=== PATIENT | female | born 1955 | race Caucasian/White ===

== ENCOUNTER 2019-05-07 05:54 | Emergency (ER) | payer BC, OTHER | END 2019-05-07 07:22 | disposition home or self-care (01) | LOC: ER 05:54 ==

== ENCOUNTER → 2019-07-21 | Outpatient (CLI) | payer MEDICARE, OTHER ==
[~2019-07-21] MED LIST: ATOR80TA76; CYCL10TA9 PO; DIVA-76; DULO30CA49; GLIP10TA13; LAMO100T; LISI2.5T; MELO15TA14 PO; MIRT15TA6; MONT10TA24; TOLT4CAP13
== END ==
LOC: CARD 11:41
PROVIDERS: ATTEND Internal Medicine Cardiovascular Disease
DX: I48.20 Chronic atrial fibrillation, unspecified (principal); I25.119 Atherosclerotic heart disease of native coronary artery with unspecified angina pectoris; I11.9 Hypertensive heart disease without heart failure; E78.5 Hyperlipidemia, unspecified
CPT/HCPCS: 93306

== ENCOUNTER → 2019-07-24 | Outpatient (CLI) | payer MEDICARE, OTHER ==
[~2019-07-24] VITALS: Ht 180 cm; Wt 108.0 kg
[~2019-07-24] MED LIST changes: +ASPI-983 PO; -ATOR80TA76; +ATOR80TA76 PO; +CATHETER FLUSH 10 ML SYR IV PRN; +CLOP75TA28 PO; -DIVA-76; +DIVA-76 PO; +DULO60CA59 PO; +EZET10TA17 PO; -GLIP10TA13; +GLIP10TA13 PO; -LAMO100T; +LAMO100T5; -LISI2.5T; +LISI2.5T PO; +METF-399 PO; -MIRT15TA6; +MIRT15TA6 PO; +MTP25TSR PO; +ONDA4TAB10 PO; +PANT40TA3 PO; +RIVA20TA PO
[2019-07-24 09:57] VITALS: BP 164/87
--- NOTE | 2019-07-24 14:26 | STRESS TEST ---
DATE OF SERVICE: 07/24/2019 EXERCISE MYOVIEW STRESS TEST REFERRING PHYSICIAN: [facility] Baseline heart rate is 84, baseline blood pressure 157/76. Baseline EKG is atrial fibrillation with no ischemic changes. In summary, the patient was injected with 10.3 mCi of technetium-99 Myoview and the resting images were obtained. Then, the patient started exercising with a baseline heart rate, blood pressure and EKG mentioned above. She was able to exercise for 2 minutes 30 seconds on standard Dawson protocol. With peak exercise level, EKG was showing nondiagnostic changes. She was injected with 32.0 mCi of technetium-99 Myoview. Throughout the test, there were minimal EKG changes. During recovery, heart rate returned to baseline, peak blood pressure 179/80, returned to baseline during recovery. The resting and stress images were reviewed and compared in the short axis, horizontal long axis, and vertical long axis views. Review of the images showed breast attenuation with reversible ischemia involving the whole anterior wall, anterior septum and anterolateral wall. SSS is 10, SDS 9, TID value 1.14. On the gated images, the left ventricle appeared to be normal size with normal contractility. Calculated ejection fraction 61%, gated images are unreliable due to underlying atrial fibrillation. CONCLUSION: 1. Poor exercise tolerance, a total of 2 minutes 30 seconds on standard Dawson protocol, total of 3.8 METs achieving 100% of maximum expected heart rate. 2. Appropriate blood pressure response to exercise returned to baseline with hypertensive response to exercise. 3. Baseline atrial fibrillation persisted throughout test. 4. Nondiagnostic EKG changes with exercise returned to baseline during recovery. 5. Breast attenuation with reversible ischemia involving the whole anterior wall, anterior septum and anterolateral wall. 6. Normal left ventricular size with normal contractility. Calculated ejection fraction is 61%, gated images are unreliable due to atrial fibrillation. Job ID: [id number] DocumentID: [id number] Dictated Date: 07/24/2019 12:24:52 Kettle Room Helper Date: 07/24/2019 14:25:40 Dictated By: DENIS ALEX MD
== END ==
LOC: CARD 08:08
PROVIDERS: ATTEND Internal Medicine Cardiovascular Disease
DX: I48.20 Chronic atrial fibrillation, unspecified (principal); I25.119 Atherosclerotic heart disease of native coronary artery with unspecified angina pectoris; I10 Essential (primary) hypertension; E78.5 Hyperlipidemia, unspecified
CPT/HCPCS: 78452; 93017

== ENCOUNTER 2019-09-20 11:00 | Outpatient (RCR) | payer MEDICARE, OTHER ==
[~2019-09-20 11:00] MED LIST changes: -CATHETER FLUSH 10 ML SYR IV PRN; -MONT10TA24; +MONT10TA26; +ONDA-105 PO; -ONDA4TAB10 PO
== END 2019-12-12 | disposition home or self-care (01) ==
LOC: CR 11:00
PROVIDERS: ATTEND Internal Medicine Cardiovascular Disease
DX: Z48.812 Encounter for surgical aftercare following surgery on the circulatory system (principal); Z95.5 Presence of coronary angioplasty implant and graft
CPT/HCPCS: 93798

== ENCOUNTER → 2019-11-10 | Outpatient (CLI) | payer MEDICARE, OTHER ==
[~2019-11-10] MED LIST changes: +MONT10TA24; -MONT10TA26; -ONDA-105 PO; +ONDA4TAB10 PO
--- NOTE | 2019-11-10 15:26 | Diagnostic Imaging Report ---
PROCEDURE: US Non-OB pelvis comp/trans. TECHNIQUE: Multiple realtime grayscale images were obtained of the pelvis in various projections endovaginally. Transabdominal imaging was also performed. INDICATION: Right lower quadrant pain. FINDINGS: The uterus measures 5.8 x 3.2 x 4.5 cm. There is a probable fibroid in posterior body, measuring 1.4 x 1.6 x 0.9 cm. Endometrium is 3 mm in thickness. The ovaries could not be visualized. No adnexal mass or free fluid is seen. IMPRESSION: Probable small uterine fibroid. No other significant abnormality is detected. Dictated by: Dictated on workstation # [id number]
== END ==
LOC: RAD 13:27
PROVIDERS: ATTEND Nurse Practitioner Primary Care
DX: N85.2 Hypertrophy of uterus (principal); R10.31 Right lower quadrant pain
CPT/HCPCS: 76830; 76856

== ENCOUNTER → 2020-06-03 | Outpatient (CLI) | payer MEDICARE, OTHER ==
[~2020-06-03] MED LIST changes: -MONT10TA24; +MONT10TA26; +ONDA-105 PO; -ONDA4TAB10 PO
== END ==
LOC: CARD 12:00
PROVIDERS: ATTEND Internal Medicine Cardiovascular Disease
DX: I25.10 Atherosclerotic heart disease of native coronary artery without angina pectoris (principal); I48.20 Chronic atrial fibrillation, unspecified; E78.2 Mixed hyperlipidemia; I11.9 Hypertensive heart disease without heart failure
CPT/HCPCS: 93306

== ENCOUNTER → 2020-06-04 | Outpatient (CLI) | payer MEDICARE, OTHER ==
--- NOTE | 2020-06-04 15:34 | Diagnostic Imaging Report ---
PROCEDURE: MRI right joint lower extremity without contrast. TECHNIQUE: Multiplanar, multisequence non contrast-enhanced MRI of the right lower extremity was accomplished. INDICATION: Knee pain with no known injury. FINDINGS: The anterior cruciate and posterior cruciate ligaments are intact. Both the superficial and deep components of the medial collateral ligament are intact. The biceps femoris, fibular collateral, and iliotibial band are intact. There are some degenerative changes of the patellofemoral joint. There is loss of articular cartilage in both the medial and lateral knee joint compartments. There is minimal underlying marrow edema. There is a degenerative cyst in the central tibia. There is degenerative maceration of the lateral meniscus. Medial meniscus has some myxoid degeneration posteriorly. Quadriceps tendon and patellar tendons are intact. There appear to be some intra-articular loose bodies. IMPRESSION: Three-compartment osteoarthritic change particularly in the lateral knee joint compartment and patellofemoral joint. Additionally, there are some intra-articular loose bodies and a small knee joint effusion. Degenerative maceration of the lateral meniscus and myxoid degeneration of the posterior horn of the medial meniscus. Dictated by: Dictated on workstation # [id number]
== END ==
LOC: RAD 14:45
PROVIDERS: ATTEND Nurse Practitioner Community Health
DX: M17.11 Unilateral primary osteoarthritis, right knee (principal); M25.461 Effusion, right knee; G89.29 Other chronic pain
CPT/HCPCS: 73721

== ENCOUNTER → 2020-07-24 | Outpatient (CLI) | payer MEDICARE, OTHER ==
[~2020-07-24] VITALS: Ht 180 cm; Wt 111.0 kg
[~2020-07-24] MED LIST changes: +ASPI-1238 PO; -ASPI-983 PO; -PANT40TA3 PO; +PANT40TA52 PO; +REGADENOSON 0.4 MG/5 ML SYR (LEXISCAN) IV ONE
[2020-07-24] MEDS: CATHETER FLUSH 10 ML SYR IV PRN ×2 (11:45→13:54)
[2020-07-24 13:53] VITALS: BP 147/73
--- NOTE | 2020-07-24 15:47 | Cardiology Stress Test Report ---
Stress Test Report Date of Procedure/Referring: Date of Procedure: Jul 24, 2020 PCP Denis Peres MD Admitting Physician Center/[facility] Indications: Atrial fibrillation, coronary artery disease Baseline Heart Rate: 67 Baseline Blood Pressure: Blood Pressure Systolic: 147 Blood Pressure Diastolic: 73 Baseline Vitals Vital Signs Date Time Temp Pulse Resp B/P (MAP) Pulse Ox O2 Delivery O2 Flow Rate FiO2 07/24/20 13:53 73 16 147/73 (97) 98 Room Air Baseline EKG: Baseline EKG: atrial fibrillation Summary After explaining the procedure to the patient, she signed a consent and then b rought to the stress nuclear laboratory. Patient received 0.4 mg Lexiscan for stress test, ECG, heart rate and blood pressure were monitored continuously. Resting and stress dose of radio tracer were injected, imaging was acquired and reviewed in short axis, horizontal long axis and vertical long axis views. TID: 1.4 SSS: 11 SDS: 2 EF: 69 1. Patient tolerated Lexiscan well 2. Breast attenuation with fixed defect involving the whole anterior wall and mid to apical anterolateral wall with no significant reversibility 3. Normal left ventricular size, normal contractility, EF 69 percent DENIS PERES MD Jul 24, 2020 15:47
== END ==
LOC: CARD 12:00
PROVIDERS: ATTEND Internal Medicine Cardiovascular Disease
DX: I10 Essential (primary) hypertension (principal); I25.10 Atherosclerotic heart disease of native coronary artery without angina pectoris; I48.20 Chronic atrial fibrillation, unspecified; E78.2 Mixed hyperlipidemia
CPT/HCPCS: 78452; 93017; A9502

== ENCOUNTER 2020-12-19 14:59 | Emergency (ER) | payer MEDICARE, OTHER ==
[~2020-12-19] VITALS: Ht 172 cm; Wt 136.0 kg
[~2020-12-19 14:59] MED LIST changes: -MONT10TA26; +MONT10TA32; -REGADENOSON 0.4 MG/5 ML SYR (LEXISCAN) IV ONE
--- NOTE | 2020-12-19 15:07 | ED Chest Pain ---
General Chief Complaint: Chest Wall Stated Complaint: CHEST PAIN Source: patient Exam Limitations: no limitations History of Present Illness Date Seen by Provider: Dec 19, 2020 Time Seen by Provider: 15:07 Initial Comments 65-year-old female presents with some chest tightness, shortness of breath. Patient reports that started out on the right side behind her lower ribs. That she is now having some chest tightness in the left side. She has got some shortness of breath. She reports a history of "asthma" but does not take any inhalers. Patient reports she has a history of bronchitis and gets at least yearly around this time a year. 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 She is currently on Xarelto Plavix Toprol. She has a previous history of atrial fib. Patient received her Covid vaccination on 12/10/2020. Allergies and Home Medications Allergies Coded Allergies: amoxicillin (Verified Adverse Reaction, Mild, 05/07/19) YEAST INFECTION Uncoded Allergies: ANESTHESIA (Adverse Reaction, Unknown, Nausea, 05/07/19) Home Medications Aspirin 81 Mg Tablet.dr, 81 MG PO DAILY Prescribed by: DENIS ALEX on 08/03/19656 Atorvastatin Calcium 80 Mg Tablet, 80 MG PO 1500, (Reported) LAST FILLED #90 03-02-19 Clopidogrel Bisulfate 75 Mg Tablet, 75 MG PO DAILY Prescribed by: DENIS ALEX on 08/03/19656 Divalproex Sodium 500 Mg Tablet.dr, 500 MG PO HS, (Reported) Duloxetine HCl 60 Mg Capsule.dr, 60 MG PO DAILY, (Reported) Ezetimibe 10 Mg Tablet, 10 MG PO DAILY Prescribed by: DENIS ALEX on 08/03/19701 Glipizide 10 Mg Tablet, 20 MG PO BID, (Reported) TAKES 2 (10MG) TABLETS Lisinopril 2.5 Mg Tablet, 2.5 MG PO 1500, (Reported) LAST FILLED #90 01-19-19 Metformin HCl 1,000 Mg Tablet, 1,000 MG PO BID Hold Metformin for 48 Hours Prescribed by: DENIS ALEX on 08/03/19656 Metoprolol Succinate 25 Mg Tab.er.24h, 25 MG PO DAILY, (Reported) Mirtazapine 15 Mg Tablet, 15 MG PO HS, (Reported) Ondansetron HCl 4 Mg Tablet, 4 MG PO TID PRN for NAUSEA/VOMITING-1ST LINE, (Reported) Pantoprazole Sodium 40 Mg Tablet.dr, 40 MG PO DAILY Prescribed by: DENIS ALEX on 08/03/19 0657 Rivaroxaban 20 Mg Tablet, 20 MG PO HS, (Reported) Patient Home Medication List Home Medication List Reviewed: Yes Review of Systems Review of Systems Constitutional: No chills, No fever, No weakness Respiratory: Shortness of Air; Denies Wheezing Cardiovascular: Chest Pain (Described as tightness); Denies Irregular Heart Rate, Denies Lightheadedness, Denies Palpitations Gastrointestinal: No Symptoms Reported Genitourinary: No Symptoms Reported Musculoskeletal: no symptoms reported Skin: no symptoms reported Psychiatric/Neurological: No Symptoms Reported Endocrine: No Symptoms Reported Hematologic/Lymphatic: No Symptoms Reported Past [id number] Hx Past Med/Social Hx: Reviewed Nursing Past Med/Soc Hx Patient Social History Alcohol Beverage of Choice: Beer Drug of Choice: THC Type Used: Cigarettes Former Smoker, Quit: Mar 22, 2017 Recent Hopitalizations: No Immunizations Up To Date Date of Pneumonia Vaccine: Aug 01, 2017 Seasonal Allergies Seasonal Allergies: No Past Medical History Surgeries: Yes Abdominal, Section, Gallbladder, Joint Replacement, Orthopedic Respiratory: Yes Asthma Cardiac: Yes Atrial Fibrillation, Coronary Artery Disease, Heart Attack, High Cholesterol, Hypertension, Irregular Heartbeat 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 Genitourinary: Yes (BLADDER CONTROL ISSUES) Gastrointestinal: Yes (SPLENECTOMY FOR UNKNOWN REASON) Musculoskeletal: Yes (LEFT KNEE REPLACEMENT) Chronic Back Pain Endocrine: Yes Diabetes, Non-Insulin dep HEENT: No (GLASSES) Cancer: No Psychosocial: Yes (EXTENSIVE PSYCH ISSUES) Anxiety, Bipolar, Depression Integumentary: No Blood Disorders: No Family Medical History Heart Disease, Lung Disease Physical Exam Vital Signs Vital Signs - First Documented 12/19/20 15:13 Temp 37.1 Pulse 77 Resp 20 B/P (MAP) 151/69 (96) Pulse Ox 100 O2 Delivery Room Air Capillary Refill : Height, Weight, BMI Height: 5'11.00" Weight: 235lbs. oz. 106.934950nz; 34.25 BMI Method:Stated General Appearance: Anxious, Obese HEENT: PERRL/EOMI Neck: Non Tender, Supple Respiratory: No Respiratory Distress, Decreased Breath Sounds; No Rhonci, No Stridor, No Wheezing Cardiovascular: Regular Rate, Rhythm Gastrointestinal: Non Tender, Soft Extremity: Normal Capillary Refill, Normal Inspection, Normal Range of Motion Neurologic/Psychiatric: Alert, Oriented x3, No Motor/Sensory Deficits, Normal Mood/Affect, remote mortgage underwriter II-XII Norm as Tested Skin: Normal Color, Warm/Dry Progress/Results/Core Measures Results/Orders Lab Results Laboratory Tests Test 12/19/20 15:20 Range/Units White Blood Count 10.9 4.3-11.0 10^3/uL Red Blood Count 4.20 3.80-5.11 10^6/uL Hemoglobin 12.0 11.5-16.0 g/dL Hematocrit 37 35-52 % Mean Corpuscular Volume 88 80-99 fL Mean Corpuscular Hemoglobin 29 25-34 pg Mean Corpuscular Hemoglobin Concent 33 32-36 g/dL Red Cell Distribution Width 16.3 H 10.0-14.5 % Platelet Count 287 130-400 10^3/uL Mean Platelet Volume 11.7 9.0-12.2 fL Immature Granulocyte % (Auto) 0 % Neutrophils (%) (Auto) 55 42-75 % Lymphocytes (%) (Auto) 34 12-44 % Monocytes (%) (Auto) 6 0-12 % Eosinophils (%) (Auto) 4 0-10 % Basophils (%) (Auto) 1 0-10 % Neutrophils # (Auto) 6.1 1.8-7.8 10^3/uL Lymphocytes # (Auto) 3.7 1.0-4.0 10^3/uL Monocytes # (Auto) 0.6 0.0-1.0 10^3/uL Eosinophils # (Auto) 0.4 H 0.0-0.3 10^3/uL Basophils # (Auto) 0.1 0.0-0.1 10^3/uL Immature Granulocyte # (Auto) 0.0 0.0-0.1 10^3/uL Prothrombin Time 17.8 H 12.2-14.7 SEC INR Comment 1.4 0.8-1.4 Activated Partial Thromboplast Time 27 24-35 SEC Sodium Level 136 135-145 MMOL/L Potassium Level 4.9 3.6-5.0 MMOL/L Chloride Level 103 98-107 MMOL/L Carbon Dioxide Level 20 L 21-32 MMOL/L Anion Gap 13 5-14 MMOL/L Blood Urea Nitrogen 21 H 7-18 MG/DL Creatinine 1.54 H 0.60-1.30 MG/DL Estimat Glomerular Filtration Rate 34 BUN/Creatinine Ratio 14 Glucose Level 259 H 70-105 MG/DL Calcium Level 9.5 8.5-10.1 MG/DL Corrected Calcium 9.7 8.5-10.1 MG/DL Magnesium Level 1.7 1.6-2.4 MG/DL Total Bilirubin 0.8 0.1-1.0 MG/DL Aspartate Amino Transf (AST/SGOT) 18 5-34 U/L Alanine Aminotransferase (ALT/SGPT) 14 0-55 U/L Alkaline Phosphatase 137 H 40-136 U/L Myoglobin 62.7 10.0-92.0 NG/ML Troponin I < 0.028 <0.028 NG/ML B-Type Natriuretic Peptide 137.7 H <100.0 PG/ML Total Protein 7.1 6.4-8.2 GM/DL Albumin 3.7 3.2-4.5 GM/DL Lipase 28 8-78 U/L My Orders Orders - PORRAS,CINTHIA L DO Cbc With Automated Diff (12/19/20 15:07) Magnesium (12/19/20 15:07) Chest 1 View, Ap/Pa Only (12/19/20 15:07) Ekg Tracing (12/19/20 15:07) Comprehensive Metabolic Panel (12/19/20 15:07) Myoglobin Serum (12/19/20 15:07) Protime With Inr (12/19/20 15:07) Partial Thromboplastin Time (12/19/20 15:07) O2 (12/19/20 15:07) Monitor-Rhythm Ecg Trace Only (12/19/20 15:07) Lipid Panel (12/20/20 06:00) Ed Iv/Invasive Line Start (12/19/20 15:07) Lipase (12/19/20 15:07) BNP (12/19/20 15:07) Troponin I (12/19/20 15:07) Aspirin Chewable Tablet (Baby Aspirin Ch (12/19/20 15:15) Levalbuterol (Non-Formulary) (Xopenex (N (12/19/20 15:15) Medications Given in ED Current Medications Medications Dose Ordered Sig/Kaylee Route Start Time Stop Time Status Last Admin Dose Admin Aspirin 324 mg ONCE ONCE PO 12/19/20 15:15 12/19/20 15:16 DC 12/19/20 15:40 324 MG Vital Signs/I&O 12/19/20 15:13 Temp 37.1 Pulse 77 Resp 20 B/P (MAP) 151/69 (96) Pulse Ox 100 O2 Delivery Room Air Progress Progress Note : Time: 16:17 Progress Note Patient feels significantly better following the Xopenex treatment. Because patient reports that she has difficulty sleeping and does not like albuterol I will give her some Xopenex nebulizers. She also has some mild pulmonary edema on x-ray and so I will start her on some Lasix. She is currently taking spironolactone. We will give her 3 days of Lasix and recommend she follow-up with her primary care provider Wednesday or Wednesday of next week for recheck of today's symptoms and ensure that she is improving. She should return to the ER as Initial ECG Impression Date: Dec 19, 2020 Initial ECG Impression Time: 15:04 Initial ECG Rate: 75 Initial ECG Rhythm: Normal Sinus Initial ECG Intervals: AK (247) Initial ECG Impression: Nonspecific Changes Comment No acute changes Diagnostic Imaging Diagonstic Imaging: Xray Plain Films/CT/US/NM/MRI: elbow Comments [facility], [place] NAME: MARC ISAAC [facility] REC#: [id number] PT STATUS: REG ER : 1955 PHYSICIAN: CINTHIA PORRAS DO ADMIT DATE: 12/19/20/ER Draft Date of Exam:12/19/20 CHEST 1 VIEW, AP/PA ONLY INDICATION: Chest pain. AP view of the chest is obtained with comparison made to study of 08/01/2019. There is mild cardiomegaly. There is mild pulmonary venous congestion. No pneumothorax is identified. There is no consolidation or definite pleural fluid. Surgical findings are seen in the left upper quadrant of the abdomen. IMPRESSION: Cardiomegaly and pulmonary venous congestion may reflect congestive heart failure without overt pulmonary edema. Dictated on workstation # [id number] Departure Impression Primary Impression: Chronic bronchitis Qualified Codes: J42 - Unspecified chronic bronchitis Additional Impression: Pulmonary edema Qualified Codes: J81.1 - Chronic pulmonary edema Disposition: HOME, SELF-CARE Condition: Stable Departure-Patient Inst. Referrals: [facility] (PCP/Family) Primary Care Physician Patient Instructions: Shortness of Breath (Dyspnea), Chronic Bronchitis, Heart Failure, Adult (DC), How to Use a Nebulizer, Adult Add. Discharge Instructions: Follow-up with your primary care provider on Wednesday of next week if possible Return to the ER as needed All discharge instructions reviewed with patient and/or family. Voiced understanding. Scripts Levalbuterol HCl (Xopenex) 1.25 Mg/3 Ml Vial.neb 1.25 MG INH Q8H PRN for WHEEZING, #10 EACH 0 Refills Prov: CINTHIA PORRAS DO 12/19/20 Furosemide (Furosemide) 20 Mg Tablet 20 MG PO DAILY, #5 TAB Prov: CINTHIA PORRAS DO 12/19/20 CINTHIA PORRAS DO Dec 19, 2020 15:07
[2020-12-19] MEDS ORDERED: RT-LEVALBUTEROL (XOPENEX) 1.25 MG/3 ML NEB NON-FORMULARY INH SCH (15:15)
[2020-12-19] MEDS ORDERED: ASPIRIN 81 MG CHEW (CHILDREN'S ASA) PO ONE (15:15)
[2020-12-19 15:30] LABS: BASOPHILS # (AUTO) 0.1 10^3/uL (0.0-0.1); BASOPHILS % (AUTO) 1 % (0-10); EOSINOPHILS # (AUTO) 0.4 10^3/uL (0.0-0.3); EOSINOPHILS % (AUTO) 4 % (0-10); HEMATOCRIT 37 % (35-52); LYMPHOCYTES # (AUTO) 3.7 10^3/uL (1.0-4.0); LYMPHOCYTES % (AUTO) 34 % (12-44); MEAN CORPUSCULAR HEMOGLOBIN 29 pg (25-34); MEAN CORPUSCULAR HGB CONC 33 g/dL (32-36); MEAN CORPUSCULAR VOLUME 88 fL (80-99); MEAN PLATELET VOLUME 11.7 fL (9.0-12.2); MONOCYTES # (AUTO) 0.6 10^3/uL (0.0-1.0); MONOCYTES % (AUTO) 6 % (0-12); NEUTROPHILS # (AUTO) 6.1 10^3/uL (1.8-7.8); NEUTROPHILS % (AUTO) 55 % (42-75); PLATELET COUNT 287 10^3/uL (130-400); WHITE BLOOD COUNT 10.9 10^3/uL (4.3-11.0)
[2020-12-19 15:45] LABS: INR 1.4 (0.8-1.4); PROTHROMBIN TIME PATIENT 17.8 SEC (12.2-14.7)
[2020-12-19 15:50] LABS: ALBUMIN 3.7 GM/DL (3.2-4.5); BILIRUBIN,TOTAL 0.8 MG/DL (0.1-1.0); CALCIUM 9.5 MG/DL (8.5-10.1); CREATININE SERUM 1.54 MG/DL (0.60-1.30); MAGNESIUM 1.7 MG/DL (1.6-2.4); POTASSIUM 4.9 MMOL/L (3.6-5.0); TOTAL PROTEIN 7.1 GM/DL (6.4-8.2)
--- NOTE | 2020-12-19 16:02 | Diagnostic Imaging Report ---
INDICATION: Chest pain. AP view of the chest is obtained with comparison made to study of 08/01/2019. There is mild cardiomegaly. There is mild pulmonary venous congestion. No pneumothorax is identified. There is no consolidation or definite pleural fluid. Surgical findings are seen in the left upper quadrant of the abdomen. IMPRESSION: Cardiomegaly and pulmonary venous congestion may reflect congestive heart failure without overt pulmonary edema. Dictated by: Dictated on workstation # [id number]
[2020-12-19] MEDS ORDERED: FURO20TA4 PO (16:21)
[2020-12-19] MEDS ORDERED: LEVA1.2527 INH (16:21)
[2020-12-19 16:39] VITALS: BP 136/86
== END 2020-12-19 16:46 | disposition home or self-care (01) ==
LOC: EDUNIT# 14:59 → ER 15:01
DX: J42 Unspecified chronic bronchitis (principal); J81.1 Chronic pulmonary edema; I10 Essential (primary) hypertension; E66.9 Obesity, unspecified; F31.9 Bipolar disorder, unspecified; I25.2 Old myocardial infarction; E78.00 Pure hypercholesterolemia, unspecified; E11.9 Type 2 diabetes mellitus without complications; I48.91 Unspecified atrial fibrillation; F41.9 Anxiety disorder, unspecified; Z68.34 Body mass index [BMI] 34.0-34.9, adult; Z87.891 Personal history of nicotine dependence; Z88.1 Allergy status to other antibiotic agents; Z79.01 Long term (current) use of anticoagulants; Z79.82 Long term (current) use of aspirin; Z79.84 Long term (current) use of oral hypoglycemic drugs
CPT/HCPCS: 36415; 71045; 80053; 83690; 83735; 83874; 83880; 84484; 85025; 85610; 85730; 93005; 93041

== ENCOUNTER 2021-11-24 11:37 | Observation (INO) | payer MEDICARE, OTHER ==
[~2021-11-24] VITALS: Ht 177.8 cm; Wt 98.1 kg
[~2021-11-24 11:37] MED LIST changes: +CYCL10TA25 PO; -CYCL10TA9 PO; +FURO20TA4 PO; +LEVA1.2527 INH; -LISI2.5T PO; +LISI2.5T13 PO; +MIRT-68 PO; -MIRT15TA6 PO; +MONT-40; -MONT10TA32; -TOLT4CAP13; +TOLT4CAP26
[2021-11-24 11:53] LABS: BASOPHILS # (AUTO) 0.1 10^3/uL (0.0-0.1); BASOPHILS % (AUTO) 1 % (0-10); EOSINOPHILS # (AUTO) 0.5 10^3/uL (0.0-0.3); EOSINOPHILS % (AUTO) 6 % (0-10); HEMATOCRIT 40 % (35-52); HEMOGLOBIN 12.8 g/dL (11.5-16.0); LYMPHOCYTES # (AUTO) 3.3 10^3/uL (1.0-4.0); LYMPHOCYTES % (AUTO) 39 % (12-44); MEAN CORPUSCULAR HEMOGLOBIN 27 pg (25-34); MEAN CORPUSCULAR HGB CONC 32 g/dL (32-36); MEAN CORPUSCULAR VOLUME 84 fL (80-99); MEAN PLATELET VOLUME 12.3 fL (9.0-12.2); MONOCYTES # (AUTO) 0.7 10^3/uL (0.0-1.0); MONOCYTES % (AUTO) 8 % (0-12); NEUTROPHILS # (AUTO) 3.9 10^3/uL (1.8-7.8); NEUTROPHILS % (AUTO) 46 % (42-75); PLATELET COUNT 435 10^3/uL (130-400); WHITE BLOOD COUNT 8.6 10^3/uL (4.3-11.0)
--- NOTE | 2021-11-24 11:54 | ED Chest Pain ---
General Chief Complaint: Chest Pain Stated Complaint: CP Source: patient Exam Limitations: no limitations History of Present Illness Date Seen by Provider: Nov 24, 2021 Time Seen by Provider: 11:49 Initial Comments Patient is a 65-year-old female who was brought to the ED by EMS for chest pain. She has a history of type 2 diabetes, hypertension, coronary artery disease, asthma, peptic ulcer disease. Patient was at the [facility] seen her primary care physician when she started having left-sided chest pain. Was given a full aspirin. Chest pain has resolved. She reports similar type pain back in April and had a heart attack. Patient was found to be in A. fib which from previous EKG she was in normal sinus rhythm. Rate controlled. She states she has been having nausea over the past 2 to 3 months. She believes this is s econdary to her diabetes medication. She states she has not been able to to eat because she is nauseous. No vomiting or diarrhea. She states the last time she felt nausea she had a ulcer that resulted in dark tarry stool and blood transfusion. She has no current abdominal pain. No urinary symptoms, headache, dizziness, visual changes, headache. No radiating pain Allergies and Home Medications Allergies Coded Allergies: amoxicillin (Verified Adverse Reaction, Mild, 05/07/19) YEAST INFECTION Uncoded Allergies: ANESTHESIA (Adverse Reaction, Unknown, Nausea, 05/07/19) Patient Home Medication List Home Medication List Reviewed: Yes Aspirin (Aspirin EC) 81 Mg Tablet., 81 MG PO DAILY Prescribed by: DENIS PERES on 08/03/19 06 Atorvastatin Calcium (Atorvastatin Calcium) 80 Mg Tablet, 80 MG PO 1500, (Reported) Entered as Reported by: ANA MARIA ROOT on 05/07/19 06 Clopidogrel Bisulfate (Clopidogrel) 75 Mg Tablet, 75 MG PO DAILY Prescribed by: DENIS PERES on 08/03/19656 Divalproex Sodium (Divalproex Sodium) 500 Mg Tablet.dr, 500 MG PO HS, (Reported) Entered as Reported by: ANA MARIA ROOT on 05/07/19614 Duloxetine HCl (Duloxetine HCl) 60 Mg Capsule.dr, 60 MG PO DAILY, (Reported) Entered as Reported by: HAVEN DAWN on 08/02/19 1112 Ezetimibe (Zetia) 10 Mg Tablet, 10 MG PO DAILY Prescribed by: DENIS PERES on 08/03/19 07 Furosemide (Furosemide) 20 Mg Tablet, 20 MG PO DAILY Prescribed by: CINTHIA PORRAS on 12/19/20 162 Glipizide (Glipizide) 10 Mg Tablet, 20 MG PO BID, (Reported) Entered as Reported by: ANA MARIA ROOT on 05/07/19614 Levalbuterol HCl (Xopenex) 1.25 Mg/3 Ml Vial.neb, 1.25 MG INH Q8H PRN for WHEEZING Prescribed by: CINTHIA PORRAS on 12/19/20 162 Lisinopril (Lisinopril) 2.5 Mg Tablet, 2.5 MG PO 1500, (Reported) Entered as Reported by: ANA MARIA ROOT on 05/07/19614 Metformin HCl (Metformin HCl) 1,000 Mg Tablet, 1,000 MG PO BID Prescribed by: DENIS PERES on 08/03/19656 Metoprolol Succinate (Metoprolol Succinate) 25 Mg Tab.er.24h, 25 MG PO DAILY, (Reported) Entered as Reported by: HAVEN DAWN on 08/02/191111 Mirtazapine (Mirtazapine) 15 Mg Tablet, 15 MG PO HS, (Reported) Entered as Reported by: ANA MARIA ROOT on 05/07/19614 Ondansetron HCl (Ondansetron HCl) 4 Mg Tablet, 4 MG PO TID PRN for NAUSEA/VOMITING-1ST LINE, (Reported) Entered as Reported by: HAVEN DAWN on 08/02/191111 Pantoprazole Sodium (Pantoprazole Sodium) 40 Mg Tablet.dr, 40 MG PO DAILY Prescribed by: DENIS PERES on 08/03/1957 Rivaroxaban (Xarelto) 20 Mg Tablet, 20 MG PO HS, (Reported) Entered as Reported by: HAVEN DAWN on 08/02/191111 Review of Systems Review of Systems Constitutional: No chills, No diaphoresis, No dizziness, No fever, No malaise EENTM: No Double Vision, No Ear Drainage, No Ear Pain, No Throat Swelling Respiratory: Denies Cough, Denies Orthopnea Cardiovascular: Chest Pain; Denies Edema Gastrointestinal: Denies Abdominal Pain, Denies Diarrhea; Nausea Genitourinary: Denies Discharge Musculoskeletal: No back pain, No joint pain Skin: No change in color, No change in hair/nails Psychiatric/Neurological: Denies Anxiety, Denies Depressed All Other Systems Reviewed Negative Unless Noted: Yes Past [id number] Hx Seasonal Allergies Seasonal Allergies: No Past Medical History Surgeries: Yes Abdominal, Section, Gallbladder, Joint Replacement, Orthopedic Respiratory: Yes Asthma Cardiac: Yes Atrial Fibrillation, Coronary Artery Disease, Heart Attack, High Cholesterol, Hypertension, Irregular Heartbeat Neurological: No [employer]OX [employer]ER History: Menopausal Genitourinary: Yes (BLADDER CONTROL ISSUES) Gastrointestinal: Yes (SPLENECTOMY FOR UNKNOWN REASON) Musculoskeletal: Yes (LEFT KNEE REPLACEMENT) Chronic Back Pain Endocrine: Yes Diabetes, Non-Insulin dep HEENT: No (GLASSES) Cancer: No Psychosocial: Yes (EXTENSIVE PSYCH ISSUES) Anxiety, Bipolar, Depression Integumentary: No Blood Disorders: No Family Medical History Heart Disease, Lung Disease Physical Exam Vital Signs Vital Signs - First Documented 11/24/21 11:37 Temp 35.6 Pulse 88 Resp 20 B/P (MAP) 104/72 (83) Pulse Ox 100 O2 Delivery Room Air Capillary Refill : Height, Weight, BMI Height: 5'11.00" Weight: 235lbs. oz. 106.945427vr; 45.00 BMI Method:Stated General Appearance: No Apparent Distress, WD/WN HEENT: PERRL/EOMI, TMs Normal, Normal ENT Inspection, Pharynx Normal Neck: Full Range of Motion, Normal Inspection, Non Tender, Supple Respiratory: Chest Non Tender, Lungs Clear, Normal Breath Sounds, No Accessory Muscle Use, No Respiratory Distress Cardiovascular: No Edema, No Gallop, No JVD, No Murmur, Irregularly Irregular Gastrointestinal: Normal Bowel Sounds, No Organomegaly, No Pulsatile Mass, Non Tender, Soft Extremity: Normal Capillary Refill, Normal Inspection, Normal Range of Motion, Non Tender Neurologic/Psychiatric: Alert, Oriented x3, No Motor/Sensory Deficits, Normal Mood/Affect, 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 Norm as Tested Skin: Normal Color, Warm/Dry Progress/Results/Core Measures Results/Orders Lab Results Laboratory Tests Test 11/24/21 11:37 11/24/21 13:50 Range/Units White Blood Count 8.6 4.3-11.0 10^3/uL Red Blood Count 4.75 3.80-5.11 10^6/uL Hemoglobin 12.8 11.5-16.0 g/dL Hematocrit 40 35-52 % Mean Corpuscular Volume 84 80-99 fL Mean Corpuscular Hemoglobin 27 25-34 pg Mean Corpuscular Hemoglobin Concent 32 32-36 g/dL Red Cell Distribution Width 18.4 H 10.0-14.5 % Platelet Count 435 H 130-400 10^3/uL Mean Platelet Volume 12.3 H 9.0-12.2 fL Immature Granulocyte % (Auto) 0 % Neutrophils (%) (Auto) 46 42-75 % Lymphocytes (%) (Auto) 39 12-44 % Monocytes (%) (Auto) 8 0-12 % Eosinophils (%) (Auto) 6 0-10 % Basophils (%) (Auto) 1 0-10 % Neutrophils # (Auto) 3.9 1.8-7.8 10^3/uL Lymphocytes # (Auto) 3.3 1.0-4.0 10^3/uL Monocytes # (Auto) 0.7 0.0-1.0 10^3/uL Eosinophils # (Auto) 0.5 H 0.0-0.3 10^3/uL Basophils # (Auto) 0.1 0.0-0.1 10^3/uL Immature Granulocyte # (Auto) 0.0 0.0-0.1 10^3/uL Prothrombin Time 21.3 H 12.2-14.7 SEC INR Comment 1.8 H 0.8-1.4 Activated Partial Thromboplast Time 33 24-35 SEC Sodium Level 136 135-145 MMOL/L Potassium Level 4.3 3.6-5.0 MMOL/L Chloride Level 105 98-107 MMOL/L Carbon Dioxide Level 20 L 21-32 MMOL/L Anion Gap 11 5-14 MMOL/L Blood Urea Nitrogen 22 H 7-18 MG/DL Creatinine 1.67 H 0.60-1.30 MG/DL Estimat Glomerular Filtration Rate 34 BUN/Creatinine Ratio 13 Glucose Level 220 H 70-105 MG/DL Calcium Level 9.6 8.5-10.1 MG/DL Corrected Calcium 9.8 8.5-10.1 MG/DL Magnesium Level 2.0 1.6-2.4 MG/DL Total Bilirubin 0.5 0.1-1.0 MG/DL Aspartate Amino Transf (AST/SGOT) 11 5-34 U/L Alanine Aminotransferase (ALT/SGPT) 9 0-55 U/L Alkaline Phosphatase 137 H 40-136 U/L Creatine Kinase MB 0.8 <6.6 NG/ML Myoglobin 56.1 10.0-92.0 NG/ML Troponin I < 0.028 < 0.028 <0.028 NG/ML B-Type Natriuretic Peptide 65.4 <100.0 PG/ML Total Protein 7.2 6.4-8.2 GM/DL Albumin 3.8 3.2-4.5 GM/DL My Orders Orders - TERRY NANCE PA Cbc With Automated Diff (11/24/21 11:47) Magnesium (11/24/21 11:47) Chest 1 View, Ap/Pa Only (11/24/21 11:47) Ekg Tracing (11/24/21 11:47) Comprehensive Metabolic Panel (11/24/21 11:47) Myoglobin Serum (11/24/21 11:47) Protime With Inr (11/24/21 11:47) Partial Thromboplastin Time (11/24/21 11:47) O2 (11/24/21 11:47) Monitor-Rhythm Ecg Trace Only (11/24/21 11:47) Lipid Panel (11/25/21 06:00) Ed Iv/Invasive Line Start (11/24/21 11:47) Creatine Kinase Mb (11/24/21 11:47) Troponin I [place] (11/24/21 11:47) Bnp [place] (11/24/21 12:34) Clopidogrel Tablet (Plavix Tablet) (11/24/21 13:00) Admission Order(Inpt,Obs,Sdc) (11/24/21 13:49) Code/Resuscitation (11/24/21 13:49) Sequential Compression Device ONCE (11/24/21 13:49) Initiate Admission Nursing Pro .admission (11/24/21 13:49) Medications Given in ED Current Medications Medications Dose Ordered Sig/Kaylee Route Start Time Stop Time Status Last Admin Dose Admin Clopidogrel Bisulfate 75 mg ONCE ONCE PO 11/24/21 13:00 11/24/21 13:01 DC 11/24/21 13:06 75 MG Vital Signs/I&O 11/24/21 11:37 Temp 35.6 Pulse 88 Resp 20 B/P (MAP) 104/72 (83) Pulse Ox 100 O2 Delivery Room Air Comment Atrial fibrillation, 73 bpm, QRS duration 112 MS, QTc 439 MS. Departure Communication (Admissions) Time/Spoke to Admitting Phy: 13:[address] Peres recommend continue medication and add Plavix 75. Currently not on aspirin. Serial troponins. GI was consulted regarding the continue nausea. Dr. Nelson was contacted and evaluated here in the ER. Patient was discussed with Dr. Thibodeaux who accepts patient. Second troponin negative. Lab work otherwise unremarkable. Chronic kidney disease. EKG without evidence of STEMI or depression. Chest x-ray unremarkable. Patient will be admitted for further evaluation. Cardiac history. Impression Primary Impression: Chest pain Additional Impressions: Nausea CKD (chronic kidney disease) Disposition: ADMITTED INPATIENT Condition: Stable Admissions Decision to Admit Reason: Admit from ER (General) Decision to Admit/Date: Nov 24, 2021 Time/Decision to Admit Time: 13:02 Departure-Patient Inst. Referrals: [facility] (PCP/Family) Primary Care Physician TERRY NANCE Nov 24, 2021 11:54
[2021-11-24 12:03] LABS: INR 1.8 (0.8-1.4); PROTHROMBIN TIME PATIENT 21.3 SEC (12.2-14.7)
[2021-11-24 12:05] LABS: ALBUMIN 3.8 GM/DL (3.2-4.5); POTASSIUM 4.3 MMOL/L (3.6-5.0)
[2021-11-24 12:06] LABS: CALCIUM 9.6 MG/DL (8.5-10.1)
[2021-11-24 12:07] LABS: TOTAL PROTEIN 7.2 GM/DL (6.4-8.2)
--- NOTE | 2021-11-24 12:07 | Diagnostic Imaging Report ---
INDICATION: Chest pain. COMPARISON: 12/19/2020. TECHNIQUE: Single radiograph of the chest dated 11/24/2021. FINDINGS: Surgical clips are noted overlying the left upper abdomen. The cardiac silhouette is borderline enlarged, slightly less prominent than on the prior examination. No significant pulmonary vascular congestion. The lungs are clear of focal pulmonary opacity. No pleural effusion. No pneumothorax. No acute osseous abnormality. IMPRESSION: Borderline cardiomegaly without pulmonary vascular congestion or additional superimposed acute cardiopulmonary abnormality. Dictated by: Dictated on workstation # [id number]
[2021-11-24 12:09] LABS: BILIRUBIN,TOTAL 0.5 MG/DL (0.1-1.0)
[2021-11-24 12:11] LABS: CREATININE SERUM 1.67 MG/DL (0.60-1.30)
[2021-11-24 12:14] LABS: CREATINE KINASE MB 0.8 NG/ML (<6.6)
[2021-11-24] MEDS ORDERED: CLOPIDOGREL 75 MG (PLAVIX) TABLET PO ONE (13:00)
--- NOTE | 2021-11-24 13:28 | Consultation - Surgery ---
VINNIE MONTGOMERY 11/24/21 1328: History of Present Illness History of Present Illness Patient Consulted On(demar/time) 11/24/21 13:17 Date Seen by Provider: Nov 24, 2021 Time Seen by Provider: 13:15 History of Present Illness Consult for nausea 65yo female with chief complaint of nausea that was present four years and that worsened three months ago after starting Rybelsus to treat her diabetes the medication has a side effect of nausea so it was switched to trulicity one month ago which worsened her nausea. She takes this medication once a week and she only took two doses of trulicity (stopped two weeks) and stopped taking it because of the nausea, stopped taking rybelsus 11/19/21 and the nausea has become worse since starting the medication and reports her PCP ([facility] Daly Perez). The nausea is described as constant and is there 26/04. Has been taking Zofran twice a day for about a year, was increased to 3 times due to increased nausea which helps and tums. Nothing makes it worse. She has never had vomiting. EGD about 10 years which showed an ulcer in [place], [place] and another EGD after that four years in [place] for a chief complaint of nausea and was told it was her marijuana use but did not find a ulcer. Colonoscopy 10 to 13 years is her only colonoscopy performed possible due to hemorrhoid burst in [place], [place]. Her nausea is unrelated to her marijuana use since she used for years before the nausea started. Denies heartburn, regurgitation of food or liquids, blood in urine or coughing blood, melena. Bowel movements are said to be bloody and reports hard stools. Allergies and Home Medications Allergies Coded Allergies: amoxicillin (Verified Adverse Reaction, Mild, 05/07/19) YEAST INFECTION Uncoded Allergies: ANESTHESIA (Adverse Reaction, Unknown, Nausea, 05/07/19) Patient Home Medication List Aspirin (Aspirin EC) 81 Mg Tablet.dr, 81 MG PO DAILY Prescribed by: DENIS ALEX on 08/03/19656 Atorvastatin Calcium (Atorvastatin Calcium) 80 Mg Tablet, 80 MG PO 1500, (Reported) Entered as Reported by: ANA MARIA ROOT on 05/07/19 06 Clopidogrel Bisulfate (Clopidogrel) 75 Mg Tablet, 75 MG PO DAILY Prescribed by: DENIS ALEX on 08/03/19656 Divalproex Sodium (Divalproex Sodium) 500 Mg Tablet.dr, 500 MG PO HS, (Reported) Entered as Reported by: ANA MARIA ROOT on 05/07/19614 Duloxetine HCl (Duloxetine HCl) 60 Mg Capsule.dr, 60 MG PO DAILY, (Reported) Entered as Reported by: HAVEN DAWN on 08/02/191111 Ezetimibe (Zetia) 10 Mg Tablet, 10 MG PO DAILY Prescribed by: DENIS ALEX on 08/03/19701 Furosemide (Furosemide) 20 Mg Tablet, 20 MG PO DAILY Prescribed by: CINTHIA PORRAS on 12/19/20 162 Glipizide (Glipizide) 10 Mg Tablet, 20 MG PO BID, (Reported) Entered as Reported by: ANA MARIA ROOT on 05/07/19614 Levalbuterol HCl (Xopenex) 1.25 Mg/3 Ml Vial.neb, 1.25 MG INH Q8H PRN for WHEEZING Prescribed by: CINTHIA PORRAS on 12/19/20 162 Lisinopril (Lisinopril) 2.5 Mg Tablet, 2.5 MG PO 1500, (Reported) Entered as Reported by: ANA MARIA ROOT on 05/07/19614 Metformin HCl (Metformin HCl) 1,000 Mg Tablet, 1,000 MG PO BID Prescribed by: DENIS ALEX on 08/03/19656 Metoprolol Succinate (Metoprolol Succinate) 25 Mg Tab.er.24h, 25 MG PO DAILY, (R eported) Entered as Reported by: HAVEN DAWN on 08/02/191111 Mirtazapine (Mirtazapine) 15 Mg Tablet, 15 MG PO HS, (Reported) Entered as Reported by: ANA MARIA ROOT on 05/07/19614 Ondansetron HCl (Ondansetron HCl) 4 Mg Tablet, 4 MG PO TID PRN for NAUSEA/VOMITING-1ST LINE, (Reported) Entered as Reported by: HAVEN DAWN on 08/02/191111 Pantoprazole Sodium (Pantoprazole Sodium) 40 Mg Tablet.dr, 40 MG PO DAILY Prescribed by: DENIS ALEX on 08/03/19656 Rivaroxaban (Xarelto) 20 Mg Tablet, 20 MG PO HS, (Reported) Entered as Reported by: HAVEN DAWN on 08/02/19 1112 Past Yodvssw-Nmsrxv-Znemlt Hx Patient Social History Drug of Choice: THC Smoking Status: Former Smoker (last time was 2 and half years ) Former Smoker, Quit: Mar 22, 2017 Type Used: Cigarettes Recent Hopitalizations: No Alcohol Use?: No Substance type: Marijuana Have you traveled recently?: No Immunizations Up To Date Date of Pneumonia Vaccine: Aug 01, 2017 Seasonal Allergies Seasonal Allergies: No Surgeries History of Surgeries: Yes Surgeries: Abdominal (spleen removed ), Appendectomy, Section, Gallbladder, Joint Replacement, Orthopedic Respiratory History of Respiratory Disorde: Yes Respiratory Disorders: Asthma Cardiovascular History of Cardiac Disorders: Yes Cardiac Disorders: Atrial Fibrillation, Coronary Artery Disease, Heart Attack, High Cholesterol, Hypertension, Irregular Heartbeat Neurological History of Neurological Disord: No 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 Genitourinary History of Genitourinary Disor: Yes (BLADDER CONTROL ISSUES) Gastrointestinal History of Gastrointestinal Di: Yes (SPLENECTOMY FOR UNKNOWN REASON) Musculoskeletal History of Musculoskeletal Dis: Yes (LEFT KNEE REPLACEMENT) Musculoskeletal Disorders: Chronic Back Pain Endocrine History of Endocrine Disorders: Yes Endocrine Disorders: Diabetes, Non-Insulin dep HEENT History of HEENT Disorders: No (GLASSES) Cancer History of Cancer: No Psychosocial History of Psychiatric Problem: Yes (EXTENSIVE PSYCH ISSUES) Behavioral Health Disorders: Anxiety, Bipolar, Depression Integumentary History of Skin or Integumenta: No Blood Transfusions History of Blood Disorders: No Family Medical History Significant Family History: Heart Disease, Lung Disease Review of Systems-General Constitutional: No chills, No fever EENTM: eye pain; No ear pain, No throat pain, No throat swelling Respiratory: No hemoptysis; short of breath; No wheezing Cardiovascular: chest pain; No palpitations Gastrointestinal: No abdominal pain; constipation; No diarrhea, No dysphagia; hematemesis; No heartburn, No melena; nausea; No vomiting Genitourinary: No dysuria, No hematuria Musculoskeletal: back pain, neck pain Skin: dryness, pruritus Psychiatric/Neurological: Anxiety, Depressed; Denies Headache Physical Exam-General Problems Physical Exam Vital Signs Vital Signs - First Documented 11/24/21 11:37 Temp 35.6 Pulse 88 Resp 20 B/P (MAP) 104/72 (83) Pulse Ox 100 O2 Delivery Room Air Capillary Refill : General Appearance: no apparent distress, obese HEENT: PERRL/EOMI; No photophobia Neck: full range of motion, supple Respiratory: chest non-tender, no respiratory distress, no accessory muscle use Cardiovascular: no murmur, irregularly irregular Gastrointestinal: non tender, other (scars from previous surgery of spleen and GB) Extremities: non-tender, no pedal edema; No calf tenderness Neurologic/Psychiatric: alert, oriented x 3 Skin: normal color, warm/dry Data Review Labs Laboratory Tests 11/24/21 11:37: White Blood Count 8.6, Red Blood Count 4.75, Hemoglobin 12.8, Hematocrit 40, Mean Corpuscular Volume 84, Mean Corpuscular Hemoglobin 27, Mean Corpuscular Hemoglobin Concent 32, Red Cell Distribution Width 18.4H, Platelet Count 435H, Mean Platelet Volume 12.3H, Immature Granulocyte % (Auto) 0, Neutrophils (%) (Auto) 46, Lymphocytes (%) (Auto) 39, Monocytes (%) (Auto) 8, Eosinophils (%) (Auto) 6, Basophils (%) (Auto) 1, Neutrophils # (Auto) 3.9, Lymphocytes # (Auto) 3.3, Monocytes # (Auto) 0.7, Eosinophils # (Auto) 0.5H, Basophils # (Auto) 0.1, Immature Granulocyte # (Auto) 0.0, Prothrombin Time 21.3H, INR Comment 1.8H, Activated Partial Thromboplast Time 33, Sodium Level 136, Potassium Level 4.3, Chloride Level 105, Carbon Dioxide Level 20L, Anion Gap 11, Blood Urea Nitrogen 22H, Creatinine 1.67H, Estimat Glomerular Filtration Rate 34, BUN/Creatinine Ratio 13, Glucose Level 220H, Calcium Level 9.6, Corrected Calcium 9.8, Magnesium Level 2.0, Total Bilirubin 0.5, Aspartate Amino Transf (AST/SGOT) 11, Alanine Aminotransferase (ALT/SGPT) 9, Alkaline Phosphatase 137H, Creatine Kinase MB 0.8, Myoglobin 56.1, Troponin I < 0.028, B-Type Natriuretic Peptide 65.4, Total Protein 7.2, Albumin 3.8 Assessment/Plan Assessment/Plan Assessment/Plan Nausea Zofran, PPI, EGD and/or colonoscopy on an outpatient basis Diabetes Monitor blood sugar with A1C and start medication that does not worsen nausea Clinical Quality Measures AMI/AHF: ASA po Prior to arrival: Yes (324) ROMÁN AGUIRRE DO 11/24/21 1511: History of Present Illness History of Present Illness Time Seen by Provider: 13:46 History of Present Illness When I spoke to pt she states she has really been nauseous for 4 yrs, had a "scope" in [place]; but nothing found. Relates hx of EGD appx 10 yrs ago where ulcer was found and large blood clot. Her nausea got worse when she was put on another DM medication 3 months ago. She is not sure if she started new med 4 yrs ago when her nausea initially started. Zofran helps a little and she has really noticed anything specific wheich makes the nausea worse. Laying flat sometimes helps. Allergies and Home Medications Allergies Coded Allergies: amoxicillin (Verified Adverse Reaction, Mild, 05/07/19) YEAST INFECTION Uncoded Allergies: ANESTHESIA (Adverse Reaction, Unknown, Nausea, 05/07/19) Patient Home Medication List Home Medication List Reviewed: Yes Aspirin (Aspirin EC) 81 Mg Tablet., 81 MG PO DAILY Prescribed by: DENIS ALEX on 08/03/19 0657 Atorvastatin Calcium (Atorvastatin Calcium) 80 Mg Tablet, 80 MG PO 1500, (Reported) Entered as Reported by: ANA MARIA ROOT on 05/07/19 06 Clopidogrel Bisulfate (Clopidogrel) 75 Mg Tablet, 75 MG PO DAILY Prescribed by: DENIS ALEX on 08/03/19 0657 Divalproex Sodium (Divalproex Sodium) 500 Mg Tablet.dr, 500 MG PO HS, (Reported) Entered as Reported by: ANA MARIA ROOT on 05/07/19 0615 Duloxetine HCl (Duloxetine HCl) 60 Mg Capsule.dr, 60 MG PO DAILY, (Reported) Entered as Reported by: HAVEN DAWN on 08/02/19 1112 Ezetimibe (Zetia) 10 Mg Tablet, 10 MG PO DAILY Prescribed by: DENIS ALEX on 08/03/19 0702 Furosemide (Furosemide) 20 Mg Tablet, 20 MG PO DAILY Prescribed by: CINTHIA PORRAS on 12/19/20 1621 Glipizide (Glipizide) 10 Mg Tablet, 20 MG PO BID, (Reported) Entered as Reported by: ANA MARIA ROOT on 05/07/19 0615 Levalbuterol HCl (Xopenex) 1.25 Mg/3 Ml Vial.neb, 1.25 MG INH Q8H PRN for WHEEZING Prescribed by: CINTHIA PORRAS on 12/19/20 1621 Lisinopril (Lisinopril) 2.5 Mg Tablet, 2.5 MG PO 1500, (Reported) Entered as Reported by: ANA MARIA ROOT on 05/07/19 06 Metformin HCl (Metformin HCl) 1,000 Mg Tablet, 1,000 MG PO BID Prescribed by: DENIS ALEX on 08/03/19 06 Metoprolol Succinate (Metoprolol Succinate) 25 Mg Tab.er.24h, 25 MG PO DAILY, (Reported) Entered as Reported by: HAVNE DAWN on 08/02/19 111 Mirtazapine (Mirtazapine) 15 Mg Tablet, 15 MG PO HS, (Reported) Entered as Reported by: ANA MARIA ROOT on 05/07/19614 Ondansetron HCl (Ondansetron HCl) 4 Mg Tablet, 4 MG PO TID PRN for NAUSEA/VOMITING-1ST LINE, (Reported) Entered as Reported by: HAVEN DAWN on 08/02/19 111 Pantoprazole Sodium (Pantoprazole Sodium) 40 Mg Tablet.dr, 40 MG PO DAILY Prescribed by: DENIS ALEX on 08/03/19656 Rivaroxaban (Xarelto) 20 Mg Tablet, 20 MG PO HS, (Reported) Entered as Reported by: HAVEN DAWN on 08/02/19 111 Past Vqpihfb-Ohxqgk-Hmcdpj Hx Patient Social History Smoking Status: Former Smoker (last time was 2 and half years ) Surgeries History of Surgeries: Yes Surgeries: Abdominal (spleen removed ), Appendectomy, Section, Gallbladder, Joint Replacement, Orthopedic Respiratory History of Respiratory Disorde: Yes Respiratory Disorders: COPD Cardiovascular History of Cardiac Disorders: Yes Cardiac Disorders: Coronary Artery Disease, Heart Attack Neurological History of Neurological Disord: No Reproductive System : No Genitourinary History of Genitourinary Disor: Yes (incontinence) Gastrointestinal History of Gastrointestinal Di: Yes Gastrointestinal Disorders: Hemorrhoids, Ulcer, Gall Bladder Disease Musculoskeletal History of Musculoskeletal Dis: Yes Musculoskeletal Disorders: Arthritis, Chronic Back Pain Endocrine History of Endocrine Disorders: Yes Endocrine Disorders: Diabetes, Non-Insulin dep HEENT History of HEENT Disorders: No Cancer History of Cancer: No Psychosocial History of Psychiatric Problem: Yes Behavioral Health Disorders: Anxiety, Depression Integumentary History of Skin or Integumenta: No Blood Transfusions History of Blood Disorders: Yes Reviewed Nursing Assessment Reviewed/Agree w Nursing PMH: Yes Family Medical History Significant Family History: Heart Disease, Lung Disease Review of Systems-General Constitutional: No chills, No fever EENTM: eye pain; No ear pain, No throat pain, No throat swelling Respiratory: No hemoptysis, No wheezing Cardiovascular: chest pain; No palpitations Gastrointestinal: No abdominal pain; constipation; No diarrhea, No dysphagia; hematemesis, melena, nausea; No vomiting; other (hematochezia) Musculoskeletal: back pain, joint pain, joint swelling, neck pain Skin: dryness, pruritus Psychiatric/Neurological: Anxiety, Depressed; Denies Headache Physical Exam-General Problems Physical Exam General Appearance: no apparent distress, obese Eyes: Bilateral Eye PERRL, Bilateral Eye EOMI HEENT: pharynx normal; No scleral icterus (R), No scleral icterus (L) Neck: full range of motion, supple Respiratory: chest non-tender, normal breath sounds, no respiratory distress, no accessory muscle use Cardiovascular: no murmur, irregularly irregular Gastrointestinal: non tender, soft, no organomegaly, other (scars from previous surgery of spleen and GB) Back: no CVA tenderness, no vertebral tenderness Extremities: non-tender, no pedal edema; No calf tenderness Neurologic/Psychiatric: alert, oriented x 3 Skin: normal color, warm/dry Assessment/Plan Assessment/Plan Assessment/Plan Nausea - fdc (started 4 yrs ago, but worse past 3 months) Refractory to Zofran; although seems to help a little, PPI, Pt would benefit from EGD and colonoscopy on an outpatient basis. I believer her nausea is related to medications and not from an ulcer. Monitor Hg. Diabetes Monitor blood sugar with A1C and start medication that does not worsen nausea. Pt may have Gastroparesis from her long-term DM; which has now caused her nausea. May need Gastric Emptying study. Supervisory-Addendum Brief Verification & Attestation Participated in pt care: history, MDM, physical Personally performed: exam, history, MDM, supervision of care Care discussed with: Medical Student Procedures: n/a Verification and Attestation of Medical Student E/M Service A medical student performed and documented this service. I then reviewed and verified all information documented by the medical student and made modificati ons to such information, when appropriate. I personally performed a physical exam, medical decision making and then discussed any differences between the notes and made revisions as necessary to create one note. Román Aguirre , 11/24/21 , 15:15 VINNIE MONTGOMERY Nov 24, 2021 13:28 ROMÁN AGUIRRE DO Nov 24, 2021 15:11
--- NOTE | 2021-11-24 14:04 | History & Physical-Hospitalist ---
MARIAA VALENZUELA U 11/24/21 1404: History of Present Illness HPI/Chief Complaint CC: Chest Pain and Nausea HPI: Kira Hill is a 65 y/o F with a PMH of T2DM, HTN, CAD, asthma, PUD, HLD, and Afib who was referred here by her PCP at [facility] for chest pain and nausea. Her most recent MS was in April of 2021 after she lost her daughter to COVID. She states she has had constant nausea for the last 2-3 months and at times it will get worse and she will have diaphoresis and heaving. She went to her PCP today and was sitting with a fan and holding her left chest. She was subsequently brought in by EMS where she was given aspirin with improvement of her chest rosangela n. This chest pain has not occurred recently but when it does occur it is usually at rest. Patient describes multiple stressors at home including a sister with alzheimers and a sister with PTSD as well as a sister in [place] with cancer. Patient seems to be most worried about her nausea as it is uncomfortable and has decreased her quality of life. She thought that the nausea may be due to a change in her diabetes medication (rybelsus and trulicity) however, the symptoms have continued after stopping this 2 weeks ago. She denies fever, chills, vomiting, changes in bowel habits, hematochezia, dysuria, urinary frequency, and hematuria. Source: patient Exam Limitations: no limitations Date Seen 11/24/21 Time Seen by a Provider: 14:00 Attending Physician Adrianna Thibodeaux DO [facility] Referring Physician Date of Admission Home Medications & Allergies Home Medications Reviewed patient Home Medication Reconciliation performed by pharmacy medication reconciliations fingernail technician and/or nursing. Patients Allergies have been reviewed. Allergies Allergies Coded Allergies amoxicillin (Verified Adverse Reaction, Mild, 11/24/21) YEAST INFECTION Uncoded Allergies ANESTHESIA ( Adverse Reaction, Unknown, Nausea, 05/07/19) Past Aehudml-Tsttmm-Wmtpoh Hx Patient Social History Tobacco Use?: No Substance use?: No Alcohol Use?: No Pt feels they are or have been: No Immunizations Up To Date First/Initial COVID19 Vaccinat: 12/10/20 Second COVID19 Vaccination Roby: 01/08/21 Tetanus Booster (TDap): Unknown Date of Pneumonia Vaccine: Aug 01, 2017 Seasonal Allergies Seasonal Allergies: No Current Status status: No Advance Directives: No Primary Language: [place] Preferred Spoken Language: [place] Sensory deficits: Vision impairment Implanted or Applied Medical D: Stents Past Medical History Surgeries: Abdominal, Section, Gallbladder, Joint Replacement, Orthopedic Asthma Atrial Fibrillation, Coronary Artery Disease, Heart Attack, High Cholesterol, Hypertension, Irregular Heartbeat 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 Chronic Back Pain Diabetes, Non-Insulin dep Anxiety, Bipolar, Depression Blood Disorders: No CAD HTN Depression Family Medical History Heart Disease, Cancer (sister), Lung Disease Review of Systems Constitutional: No chills, No fever EENTM: No blurred vision, No double vision Respiratory: No cough, No dyspnea on exertion Cardiovascular: chest pain; No palpitations Gastrointestinal: No abdominal pain; constipation (chronic); No diarrhea, No hematemesis; loss of appetite; No melena; nausea; No vomiting Genitourinary: No dysuria, No frequency, No hematuria Musculoskeletal: back pain Skin: No change in color; dryness Psychiatric/Neurological: Anxiety, Depressed Physical Exam Physical Exam Vital Signs Vital Signs - First Documented 11/24/21 11:37 Temp 35.6 Pulse 88 Resp 20 B/P (MAP) 104/72 (83) Pulse Ox 100 O2 Delivery Room Air Capillary Refill : Height, Weight, BMI Height: 5'11.00" Weight: 235lbs. oz. 106.861373pt; 30.00 BMI Method:Stated General Appearance: No Apparent Distress, Anxious, Obese HEENT: Normal ENT Inspection Neck: Full Range of Motion, Normal Inspection Respiratory: Lungs Clear, Normal Breath Sounds, No Accessory Muscle Use Cardiovascular: Irregularly Irregular Gastrointestinal: Normal Bowel Sounds, Non Tender, Soft Rectal: Deferred Back: Normal Inspection, No CVA Tenderness, No Vertebral Tenderness Extremity: Normal Inspection, Pedal Edema (trace) Neurologic/Psychiatric: Alert, Oriented x3 Skin: Normal Color, Warm/Dry Results Results/Procedures Labs Laboratory Tests 11/24/21 11:37 11/25/21 05:48 Patient resulted labs reviewed. Assessment/Plan Admission Diagnosis Chest Pain Admission Status: Observation Assessment and Plan Chest Pain - trop is normal - EKG shows Afib - Continue aspirin and plavix - cardiology consulted Nausea - can start zofran prn - GI consulted Afib - Xarelto 20 - diltiazam 240 - appreciate cardiology recs T2DM - hold home meds for now - awaiting home med rec - will start on SSI - can obtain HbA1c - needs DM education HLD - atorvastatin 80 - continue home ezetimibe HTN - lisinopril - coreg - tolterodine Peptic Ulcer Disease - protonix Clinical Quality Measures AMI/AHF: ASA po Prior to arrival: Yes (324) ADRIANNA THIBODEAUX DO 11/26/21 0444: History of Present Illness HPI/Chief Complaint CC: Chest pain HPI: 65 yr old [facility] pt of [facility]. She presented to the ER with chest pain. Pt was found to have no evidence of acute coronary syndrome. Cardiology evaluated her, deemed her stable for discharge and she will go home on an aspirin. I will give her Reglan and Zofran for chronic nausea. She will have close follow up with her PCP. Source: patient Exam Limitations: no limitations Past Cabpuer-Hazpfb-Bxdyoe Hx Patient Social History Marrital Status: single Employed/Student: unemployed Smoking Status: Former Smoker Past Medical History Surgeries: Coronary Stent High Cholesterol, Hypertension Diabetes, Non-Insulin dep Review of Systems Constitutional: see HPI, malaise, weakness EENTM: no symptoms reported Respiratory: dyspnea on exertion Cardiovascular: chest pain Gastrointestinal: nausea Musculoskeletal: back pain Skin: no symptoms reported Psychiatric/Neurological: Anxiety, Depressed All Other Systems Reviewed Negative Unless Noted: Yes Physical Exam Physical Exam General Appearance: No Apparent Distress, Anxious, Chronically ill Eyes: Right Eye Normal Inspection, Right Eye PERRL HEENT: PERRL/EOMI, Normal ENT Inspection, Pharynx Normal, Moist Mucous Membranes Neck: Full Range of Motion, Normal Inspection, Non Tender Respiratory: Chest Non Tender, Lungs Clear, Normal Breath Sounds, No Accessory Muscle Use, No Respiratory Distress Cardiovascular: Regular Rate, Rhythm, No Edema, No Gallop, No JVD, No Murmur, Normal Peripheral Pulses Gastrointestinal: Normal Bowel Sounds, No Organomegaly, No Pulsatile Mass, Non Tender, Soft Back: Normal Inspection, No CVA Tenderness, No Vertebral Tenderness Extremity: Normal Capillary Refill, Normal Inspection, Normal Range of Motion, Non Tender, No Calf Tenderness, No Pedal Edema Neurologic/Psychiatric: Alert, Oriented x3, No Motor/Sensory Deficits, Normal Mood/Affect Skin: Normal Color, Warm/Dry Lymphatic: No Adenopathy Assessment/Plan Admission Diagnosis Assessment: Chest pain no evidence of ACS Diabetes Ongoing nausea Plan: Discharge home once cardiology evaluated Admission Status: Observation Diagnosis/Problems Diagnosis/Problems (1) Chest pain (2) CKD (chronic kidney disease) Status: Acute (3) Nausea Status: Acute (4) Non-insulin dependent type 2 diabetes mellitus Status: Chronic (5) HLD (hyperlipidemia) Status: Chronic (6) HTN (hypertension) Status: Chronic Supervisory-Addendum Brief Verification & Attestation Participated in pt care: history, MDM, physical Personally performed: exam, history, MDM, supervision of care Care discussed with: Medical Student Procedures: n/a Results interpretation: Verified all documentation Verification and Attestation of Medical Student E/M Service A medical student performed and documented this service in my presence. I reviewed and verified all information documented by the medical student and made modifications to such information, when appropriate. I personally performed the physical exam and medical decision making. Adrianna Thibodeaux, Nov 26, 2021,04:42 MARIAA VALENZUELA Nov 24, 2021 14:04 ADRIANNA THIBODEAUX DO Nov 26, 2021 04:44
[2021-11-24 14:55] VITALS: BP 117/68
[2021-11-24] MEDS ORDERED: polyethylene glycoL POWDER 17 GM (MIRALAX) PACK PO PRN (15:00)
[2021-11-24] MEDS ORDERED: BISACODYL 10 MG SUPP (DULCOLAX) PR PRN (15:00)
[2021-11-24] MEDS ORDERED: ALPRAZolam 0.25 MG (XANAX) TAB PO PRN (15:00)
[2021-11-24] MEDS ORDERED: MELATONIN 3 MG TABLET PO PRN (15:00)
[2021-11-24] MEDS ORDERED: morphine INJ 4 MG/ML 1 ML (VIAL/SYRINGE) IV PRN (15:00)
[2021-11-24] MEDS ORDERED: diphenhydrAMINE 50 MG/ML INJ (BENADRYL) IVP PRN (15:00)
[2021-11-24] MEDS ORDERED: ONDANSETRON 4 MG/2 ML (SDV) Z0FRAN IV PRN (15:00)
[2021-11-24] MEDS ORDERED: MILK OF MAGNESIA 400 MG/5 ML 30 ML UDC PO PRN (15:00)
[2021-11-24] MEDS ORDERED: ACETAMINOPHEN 325 MG TABLET PO PRN (15:00)
[2021-11-24] MEDS ORDERED: diphenhydrAMINE 25 MG TAB (BENADRYL) PO PRN (15:00)
[2021-11-24] MEDS ORDERED: PATIENT MAY USE OWN MEDS, ALL PO SCH (15:00)
[2021-11-24] MEDS ORDERED: ANTACID SUSP 30 ML UDC (MYLANTA) PO PRN (15:00)
[2021-11-24] MEDS ORDERED: ONDANSETRON 4 MG (ZOFRAN) ORAL DISSOLVE TAB PO PRN (15:00)
[2021-11-24] MEDS ORDERED: LACTULOSE SYRUP 10GM/15ML (ENULOSE) 30ML UDC PO PRN (15:00)
[2021-11-24] MEDS ORDERED: CALCIUM CARBONATE 500 MG (TUMS) TAB.CHEW PO PRN (15:00)
[2021-11-24 16:00] VITALS: BP 117/68
[2021-11-24 16:07] VITALS: BP 112/70
[2021-11-24] MEDS ORDERED: RT-ALBUTEROL/IPRATROPIUM 3 ML (DUONEB) VIAL INH PRN (16:15)
[2021-11-24] MEDS: inSUlin ASPART (NovoLOG) 1 UNIT/0.01 ML (CHARGE PER UNIT) SC SCH ×2 (16:23→21:02)
[2021-11-24] MEDS ORDERED: RIVAROXABAN 20 MG TABLET (XARELTO) PO SCH (17:00)
--- NOTE | 2021-11-24 18:15 | Consultation-Cardiology ---
HPI-Cardiology Cardiology Consultation Date of Consultation 11/24/21 Date of Admission Time Seen by Provider: 18:10 Indication: Chest pain HPI 65-year-old lady with history of coronary artery disease, chronic atrial fibrillation, had history of chronic nausea. Recently has been having worsening episodes of nausea. She felt initially that it was related to some of her diabetic medication. Patient was seen at her primary care physician and referred to the emergency room for chest pain, she describes episode of nausea and discomfort. No syncope or near syncopal episodes. No palpitation. Home Medications & Allergies Allergies: Coded Allergies: amoxicillin (Verified Adverse Reaction, Mild, 05/07/19) YEAST INFECTION Uncoded Allergies: ANESTHESIA (Adverse Reaction, Unknown, Nausea, 05/07/19) Home Medication List Reviewed: Yes [id number] Hx Patient Social History Marital Status: Drug of Choice: THC Smoking Status: Former Smoker (last time was 2 and half years ) Type Used: Cigarettes Recent Hopitalizations: No Have you traveled recently?: No Alcohol Use?: No Substance type: Marijuana Immunizations Up To Date Date of Pneumonia Vaccine: Aug 01, 2017 Date of Influenza Vaccine: Aug 18, 2021 Past Medical History Discussed below Family Medical History Significant Family History: Heart Disease, Lung Disease Family Medical Hx Noncontributory Review of Systems-General Review of Systems Constitutional: see HPI; No chills, No diaphoresis, No dizziness, No fever, No malaise EENTM: see HPI, eye pain; No ear pain, No throat pain, No throat swelling Respiratory: see HPI; No hemoptysis, No wheezing Cardiovascular: see HPI, chest pain; No palpitations Gastrointestinal: see HPI; No abdominal pain; constipation; No diarrhea, No dysphagia; hematemesis, melena, nausea; No vomiting; other (hematochezia) Genitourinary: see HPI; No dysuria, No frequency, No hematuria Musculoskeletal: see HPI; No back pain, No joint pain Skin: see HPI; No change in color, No change in hair/nails Psychiatric/Neurological: Denies Anxiety, Denies Depressed All Other Systems Reviewed Negative Unless Noted: Yes Reviewed Test Results Reviewed Test Results Lab Laboratory Tests Test 11/24/21 11:37 11/24/21 13:50 11/24/21 16:19 Range/Units White Blood Count 8.6 4.3-11.0 10^3/uL Red Blood Count 4.75 3.80-5.11 10^6/uL Hemoglobin 12.8 11.5-16.0 g/dL Hematocrit 40 35-52 % Mean Corpuscular Volume 84 80-99 fL Mean Corpuscular Hemoglobin 27 25-34 pg Mean Corpuscular Hemoglobin Concent 32 32-36 g/dL Red Cell Distribution Width 18.4 H 10.0-14.5 % Platelet Count 435 H 130-400 10^3/uL Mean Platelet Volume 12.3 H 9.0-12.2 fL Immature Granulocyte % (Auto) 0 % Neutrophils (%) (Auto) 46 42-75 % Lymphocytes (%) (Auto) 39 12-44 % Monocytes (%) (Auto) 8 0-12 % Eosinophils (%) (Auto) 6 0-10 % Basophils (%) (Auto) 1 0-10 % Neutrophils # (Auto) 3.9 1.8-7.8 10^3/uL Lymphocytes # (Auto) 3.3 1.0-4.0 10^3/uL Monocytes # (Auto) 0.7 0.0-1.0 10^3/uL Eosinophils # (Auto) 0.5 H 0.0-0.3 10^3/uL Basophils # (Auto) 0.1 0.0-0.1 10^3/uL Immature Granulocyte # (Auto) 0.0 0.0-0.1 10^3/uL Prothrombin Time 21.3 H 12.2-14.7 SEC INR Comment 1.8 H 0.8-1.4 Activated Partial Thromboplast Time 33 24-35 SEC Sodium Level 136 135-145 MMOL/L Potassium Level 4.3 3.6-5.0 MMOL/L Chloride Level 105 98-107 MMOL/L Carbon Dioxide Level 20 L 21-32 MMOL/L Anion Gap 11 5-14 MMOL/L Blood Urea Nitrogen 22 H 7-18 MG/DL Creatinine 1.67 H 0.60-1.30 MG/DL Estimat Glomerular Filtration Rate 34 BUN/Creatinine Ratio 13 Glucose Level 220 H 70-105 MG/DL Calcium Level 9.6 8.5-10.1 MG/DL Corrected Calcium 9.8 8.5-10.1 MG/DL Magnesium Level 2.0 1.6-2.4 MG/DL Total Bilirubin 0.5 0.1-1.0 MG/DL Aspartate Amino Transf (AST/SGOT) 11 5-34 U/L Alanine Aminotransferase (ALT/SGPT) 9 0-55 U/L Alkaline Phosphatase 137 H 40-136 U/L Creatine Kinase MB 0.8 <6.6 NG/ML Myoglobin 56.1 10.0-92.0 NG/ML Troponin I < 0.028 < 0.028 <0.028 NG/ML B-Type Natriuretic Peptide 65.4 <100.0 PG/ML Total Protein 7.2 6.4-8.2 GM/DL Albumin 3.8 3.2-4.5 GM/DL Glucometer 110 70-110 MG/DL Physical Exam Physical Exam Vital Signs Vital Signs - First Documented 11/24/21 11:37 Temp 35.6 Pulse 88 Resp 20 B/P (MAP) 104/72 (83) Pulse Ox 100 O2 Delivery Room Air Capillary Refill : Height, Weight, BMI Height: 5'11.00" Weight: 235lbs. oz. 106.752688qp; 31.03 BMI Method:Stated General Appearance: No Apparent Distress, WD/WN Eyes: Bilateral Eye PERRL, Bilateral Eye EOMI HEENT: PERRL/EOMI, TMs Normal, Normal ENT Inspection, Pharynx Normal Neck: Full Range of Motion, Normal Inspection, Non Tender, Supple Respiratory: Chest Non Tender, Lungs Clear, Normal Breath Sounds, No Accessory Muscle Use, No Respiratory Distress Cardiovascular: No Edema, No Gallop, No JVD, No Murmur, Irregularly Irregular Gastrointestinal: Normal Bowel Sounds, No Organomegaly, No Pulsatile Mass, Non Tender, Soft Rectal: Deferred Back: Normal Inspection, No CVA Tenderness, No Vertebral Tenderness Extremity: Normal Capillary Refill, Normal Inspection, Normal Range of Motion, Non Tender Neurologic/Psychiatric: Alert, Oriented x3, No Motor/Sensory Deficits, Normal Mood/Affect, resource management specialist II-XII Norm as Tested Skin: Normal Color, Warm/Dry A/P-Cardiology Admission Diagnosis Chest pain Coronary artery disease Hypertension Chronic atrial fibrillation Assessment/Plan Chest pain, nonspecific etiology, extensive cardiac history as described below. Last stress test was done in [place] in April 2021. Cardiac enzymes at this time are negative. I will monitor EKG. Nausea, questionable underlying gastroparesis. Had significant weight loss recently. Managed by primary care team. Coronary artery disease, History of stenting done in the past in [place], underwent Promus 2.75 x 23 mm stent to the LAD in 2009, Had another cardiac catheterization done in 2016 with stents 2 to the RCA using Xience Alpine 2.5 x 38 mm and Xience Alpine 3.8 x 38 mm, done in [facility], Had abnormal stress test and cardiac catheterization done on August 02, 2019 showing ulcerated plaque with severe stenosis at the proximal LAD with successful deployment of Nya 2.75 x 18 mm stent overlapping with her old 2.75 stent expanded to 2.85 with excellent results, distal to the stent there is an area of 60 percent stenosis but the artery is fairly smaller artery, will manage it conservatively, had patent stents in the midright coronary artery with no obstructive disease, mild disease in the circumflex artery with normal LV size and function. Angiogram Hospitalizations in April 2021 with chest pain, reported that she had a stress test in [place] and reported as fixed defect involving the mid to apical anterior wall and anterior septum with mid inferolateral and apical lateral consistent with old infarction in the LAD distribution. Congestive heart failure, chronic compensated left ventricular systolic dysfunction, repeat echocardiogram showed improvement, ejection fraction 50 to 55%. Normal BNP. Continue to monitor Chronic atrial fibrillation, maintained on Xarelto and Toprol, controlled, occasionally rapid heart rate, tolerating current medication well. Continue to monitor Hypertension, controlled, continue to monitor Hyperlipidemia, maintained on Lipitor 80 mg and Zetia 10 mg daily, continue to monitor lipids Dizziness, occurring infrequently, currently feeling better Mild bilateral carotid stenosis, ultrasound was done in May 2021 Diabetes mellitus, managed by primary care physician Clinical Quality Measures AMI/AHF: ASA po Prior to arrival: Yes ([phone]) DENIS ALEX MD Nov 24, 2021 18:15
[2021-11-24] MEDS: SENNOSIDES 8.6 MG (SENOKOT) TAB PO SCH (20:34)
[2021-11-24] MEDS: PANTOPRAZOLE 40 MG (PROTONIX) TAB PO SCH (20:34)
[2021-11-24] MEDS: DOCUSATE SODIUM 100 MG (COLACE) CAP PO SCH (20:34)
[2021-11-24 20:56] VITALS: BP 127/78
[2021-11-25] VITALS: BP 144/85
[2021-11-25 04:00] VITALS: BP 131/80
[2021-11-25 06:25] LABS: BASOPHILS # (AUTO) 0.1 10^3/uL (0.0-0.1); BASOPHILS % (AUTO) 1 % (0-10); EOSINOPHILS # (AUTO) 0.6 10^3/uL (0.0-0.3); EOSINOPHILS % (AUTO) 6 % (0-10); HEMATOCRIT 38 % (35-52); HEMOGLOBIN 11.9 g/dL (11.5-16.0); LYMPHOCYTES # (AUTO) 3.3 10^3/uL (1.0-4.0); LYMPHOCYTES % (AUTO) 37 % (12-44); MEAN CORPUSCULAR HEMOGLOBIN 27 pg (25-34); MEAN CORPUSCULAR HGB CONC 32 g/dL (32-36); MEAN CORPUSCULAR VOLUME 85 fL (80-99); MEAN PLATELET VOLUME 11.9 fL (9.0-12.2); MONOCYTES # (AUTO) 0.8 10^3/uL (0.0-1.0); MONOCYTES % (AUTO) 9 % (0-12); NEUTROPHILS # (AUTO) 4.1 10^3/uL (1.8-7.8); NEUTROPHILS % (AUTO) 46 % (42-75); PLATELET COUNT 374 10^3/uL (130-400); WHITE BLOOD COUNT 8.8 10^3/uL (4.3-11.0)
[2021-11-25 06:38] LABS: ALBUMIN 3.4 GM/DL (3.2-4.5); CHLORIDE 108 MMOL/L (98-107); POTASSIUM 3.8 MMOL/L (3.6-5.0); SODIUM 138 MMOL/L (135-145)
[2021-11-25 06:39] LABS: CALCIUM 9.5 MG/DL (8.5-10.1)
[2021-11-25 06:40] LABS: TOTAL PROTEIN 6.4 GM/DL (6.4-8.2); TRIGLYCERIDES 158 MG/DL (<150); VLDL CHOLESTEROL 32 MG/DL (5-40)
[2021-11-25 06:41] LABS: GLUCOSE 111 MG/DL (70-105)
[2021-11-25 06:42] LABS: BILIRUBIN,TOTAL 0.8 MG/DL (0.1-1.0); CARBON DIOXIDE 21 MMOL/L (21-32)
[2021-11-25] MEDS: inSUlin ASPART (NovoLOG) 1 UNIT/0.01 ML (CHARGE PER UNIT) SC SCH (06:42)
[2021-11-25 06:44] LABS: ALKALINE PHOSPHATASE 123 U/L (40-136); CREATININE SERUM 1.24 MG/DL (0.60-1.30); GFR ESTIMATED 48
[2021-11-25 06:45] LABS: BUN/CREATININE RATIO 12; CHOLESTEROL 134 MG/DL (< 200)
[2021-11-25 06:46] LABS: HDL CHOLESTEROL 42 MG/DL (40-60)
[2021-11-25 06:47] LABS: ALANINE AMINOTRANSFERASE 9 U/L (0-55); MAGNESIUM 1.8 MG/DL (1.6-2.4)
[2021-11-25 08:12] VITALS: BP 112/75
--- NOTE | 2021-11-25 08:18 | Progress Note - Surgery ---
VINNIE MONTGOMERY 11/25/21 0818: Subjective Date Seen by a Provider: Nov 25, 2021 Time Seen by a Provider: 08:10 Subjective/Events-last exam Pt reports no nausea since yesterday afternoon and no vomiting, her nausea is well controlled and better than what she has been experiencing for the past four years and especially over the past few months. She is on a clear liquid diet that has helped her and on PPI. Review of Systems General: No Chills; Other (no fever) HEENT: No Eye Pain, No Ear Pain Pulmonary: No Cough, No Pleuritic Chest Pain Cardiovascular: No: Chest Pain, Palpitations Gastrointestinal: No: Nausea, Vomiting, Abdominal Pain, Melena, Hematochezia Genitourinary: No Dysuria, No Hematuria Musculoskeletal: neck pain, back pain Neurological: No: Change in speech, Confusion Anxiety Objective Exam Vital Signs Date Time Temp Pulse Resp B/P (MAP) Pulse Ox O2 Delivery O2 Flow Rate FiO2 11/25/21 04:00 36.5 89 20 131/80 (97) 100 Room Air 11/25/21 01:00 73 11/25/21 00:00 36.8 95 22 144/85 (104) 98 Room Air 11/24/21 20:56 36.4 72 20 127/78 (94) 100 Room Air 11/24/21 19:00 67 11/24/21 18:10 Room Air 11/24/21 16:07 36.3 66 19 112/70 (84) 100 Room Air 11/24/21 16:00 36.4 77 100 11/24/21 15:08 77 11/24/21 14:55 36.4 78 20 117/68 (84) 100 Room Air 11/24/21 14:44 35.6 68 18 118/78 100 Room Air 11/24/21 11:37 35.6 88 20 104/72 (83) 100 Room Air I & O 11/25/21 07:00 Intake Total 2225 ml Output Total 2050 ml Balance 175 ml Capillary Refill : General Appearance: No Apparent Distress, Obese HEENT: PERRL/EOMI; No Photophobia Neck: Full Range of Motion, Supple Respiratory: Chest Non Tender, Normal Breath Sounds, No Accessory Muscle Use, No Respiratory Distress Cardiovascular: No Murmur, Irregularly Irregular Gastrointestinal: non tender, soft, no organomegaly, other (scars from previous surgery of spleen and GB) Extremity: Non Tender, No Calf Tenderness Neurologic/Psychiatric: Alert, Oriented x3 Skin: Normal Color, Warm/Dry Results Lab Laboratory Tests 11/24/21 11:37: White Blood Count 8.6, Red Blood Count 4.75, Hemoglobin 12.8, Hematocrit 40, Mean Corpuscular Volume 84, Mean Corpuscular Hemoglobin 27, Mean Corpuscular Hemoglobin Concent 32, Red Cell Distribution Width 18.4H, Platelet Count 435H, Mean Platelet Volume 12.3H, Immature Granulocyte % (Auto) 0, Neutrophils (%) (Auto) 46, Lymphocytes (%) (Auto) 39, Monocytes (%) (Auto) 8, Eosinophils (%) (Auto) 6, Basophils (%) (Auto) 1, Neutrophils # (Auto) 3.9, Lymphocytes # (Auto) 3.3, Monocytes # (Auto) 0.7, Eosinophils # (Auto) 0.5H, Basophils # (Auto) 0.1, Immature Granulocyte # (Auto) 0.0, Prothrombin Time 21.3H, INR Comment 1.8H, Activated Partial Thromboplast Time 33, Sodium Level 136, Potassium Level 4.3, Chloride Level 105, Carbon Dioxide Level 20L, Anion Gap 11, Blood Urea Nitrogen 22H, Creatinine 1.67H, Estimat Glomerular Filtration Rate 34, BUN/Creatinine Ratio 13, Glucose Level 220H, Calcium Level 9.6, Corrected Calcium 9.8, Magnesium Level 2.0, Total Bilirubin 0.5, Aspartate Amino Transf (AST/SGOT) 11, Alanine Aminotransferase (ALT/SGPT) 9, Alkaline Phosphatase 137H, Creatine Kinase MB 0.8, Myoglobin 56.1, Troponin I < 0.028, B-Type Natriuretic Peptide 65.4, Total Protein 7.2, Albumin 3.8 11/24/21 13:50: Troponin I < 0.028 11/24/21 16:19: Glucometer 110 11/24/21 19:11: Troponin I < 0.028 11/24/21 20:51: Glucometer 94 11/25/21 05:48: White Blood Count 8.8, Red Blood Count 4.44, Hemoglobin 11.9, Hematocrit 38, Mean Corpuscular Volume 85, Mean Corpuscular Hemoglobin 27, Mean Corpuscular Hemoglobin Concent 32, Red Cell Distribution Width 18.6H, Platelet Count 374, Mean Platelet Volume 11.9, Immature Granulocyte % (Auto) 0, Neutrophils (%) (Auto) 46, Lymphocytes (%) (Auto) 37, Monocytes (%) (Auto) 9, Eosinophils (%) (Auto) 6, Basophils (%) (Auto) 1, Neutrophils # (Auto) 4.1, Lymphocytes # (Auto) 3.3, Monocytes # (Auto) 0.8, Eosinophils # (Auto) 0.6H, Basophils # (Auto) 0.1, Immature Granulocyte # (Auto) 0.0, Sodium Level 138, Potassium Level 3.8, Chloride Level 108H, Carbon Dioxide Level 21, Anion Gap 9, Blood Urea Nitrogen 15, Creatinine 1.24, Estimat Glomerular Filtration Rate 48, BUN/Creatinine Ratio 12, Glucose Level 111H, Calcium Level 9.5, Corrected Calcium 10.0, Magnesium Level 1.8, Total Bilirubin 0.8, Aspartate Amino Transf (AST/SGOT) 12, Alanine Aminotransferase (ALT/SGPT) 9, Alkaline Phosphatase 123, Troponin I < 0.028, Total Protein 6.4, Albumin 3.4, Triglycerides Level 158H, Cholesterol Level 134, LDL Cholesterol Direct 65, VLDL Cholesterol 32, HDL Cholesterol 42 Assessment/Plan Assessment/Plan Assessment/Plan Nausea - intermediate (started 4 yrs ago, but worse past 3 months) Refractory to Zofran; although seems to help a little, PPI, Pt would benefit from EGD and colonoscopy on an outpatient basis. I believer her nausea is related to medications and not from an ulcer. Monitor Hemoglobin, 11.9 today and 12.8 yesterday. Diabetes Monitor blood sugar with A1C and start medication that does not worsen nausea. Pt may have Gastroparesis from her long-term DM; which has now caused her nausea. May need Gastric Emptying study. Clinical Quality Measures AMI/AHF: ASA po Prior to arrival: Yes ([phone]) ROMÁN NELSON DO 11/25/21 1352: Subjective Time Seen by a Provider: 11:21 Subjective/Events-last exam Pt seen and examined, states she feels much better than yesterday. Almost no nausea. Review of Systems General: No Chills Pulmonary: No Cough, No Pleuritic Chest Pain Cardiovascular: No: Chest Pain, Palpitations Gastrointestinal: Nausea (minimal); No: Vomiting, Abdominal Pain Objective Exam General Appearance: No Apparent Distress Respiratory: Chest Non Tender, Lungs Clear, Normal Breath Sounds, No Accessory Muscle Use, No Respiratory Distress Cardiovascular: No Murmur, Irregularly Irregular Gastrointestinal: non tender, soft, no organomegaly, other (scars from previous surgery of spleen and GB) Assessment/Plan Assessment/Plan Assessment/Plan Nausea - salvage determiner (started 4 yrs ago, but worse past 3 months) Refractory to Zofran; although seems to help a little, PPI, Pt would benefit from EGD and colonoscopy on an outpatient basis. I believer her nausea is related to medications and not from an ulcer. Monitor Hemoglobin, 11.9 today and 12.8 yesterday. Diabetes Monitor blood sugar with A1C and start medication that does not worsen nausea. Pt may have Gastroparesis from her long-term DM; which has now caused her nausea. May need Gastric Emptying study. Supervisory-Addendum Brief Verification & Attestation Participated in pt care: history, MDM, physical Personally performed: exam, history, MDM, supervision of care Care discussed with: Medical Student Procedures: n/a Verification and Attestation of Medical Student E/M Service A medical student performed and documented this service. I then reviewed and verified all information documented by the medical student and made modifications to such information, when appropriate. I personally performed a physical exam, medical decision making and then discussed any differences between the notes and made revisions as necessary to create one note. Román Nelson , 11/25/21 , 13:52 VALENTINASHALINIMAYELA Nov 25, 2021 08:18 ROMÁN NELSON DO Nov 25, 2021 13:52
[2021-11-25] MEDS: DOCUSATE SODIUM 100 MG (COLACE) CAP PO SCH (08:20)
[2021-11-25] MEDS: PANTOPRAZOLE 40 MG (PROTONIX) TAB PO SCH (08:21)
[2021-11-25] MEDS: SENNOSIDES 8.6 MG (SENOKOT) TAB PO SCH (08:21)
--- NOTE | 2021-11-25 08:26 | Cardiology Progress Note ---
Subjective Date Seen by Provider: Nov 25, 2021 Time Seen by Provider: 08:15 Subjective/Events-last exam Patient in bed, continues to have nausea, although reports somewhat improved. Denies any chest pain Objective-Cardiology Exam Last Set of Vital Signs Vital Signs 11/25/21 12:10 Temp 36.3 Pulse 75 Resp 16 B/P (MAP) 112/75 Pulse Ox 98 O2 Delivery Room Air I&O Intake and Output 11/25/21 00:00 Intake Total 1225 ml Output Total 1100 ml Balance 125 ml Intake Oral 1200 ml IV Total 25 ml Output Urine Total 1100 ml Daily Weight Change No General: Alert, Oriented X3, Cooperative HEENT: Atraumatic, PERRLA Neck: Supple, No JVD, No Thyromegaly Lungs: Clear to Auscultation, Normal Air Movement Heart: Regular Rate, Normal S1, Normal S2, No Murmurs Abdomen: Normal Bowel Sounds, Soft, No Tenderness, No Hepatosplenomegaly, No Masses Extremities: No Clubbing, No Cyanosis, No Edema, Normal Pulses, No Tenderness/Swelling Skin: No Rashes, No Breakdown, No Significant Lesion Neuro: Normal Gait, Normal Speech, Strength at 5/5 X4 Ext, Normal Tone, Sensation Intact Psych/Mental Status: Mental Status NL, Mood NL Results Lab Laboratory Tests 11/25/21 05:48 A/P-Cardiology Admission Diagnosis Chest pain Coronary artery disease Hypertension Chronic atrial fibrillation Assessment/Plan Chest pain, nonspecific etiology, extensive cardiac history as described below. Last stress test was done in [place] in April 2021. Cardiac enzymes at this time are negative. Denies any further episode. Nausea, questionable underlying gastroparesis. Had significant weight loss recently. Managed by primary care team. Coronary artery disease, History of stenting done in the past in [place], underwent Promus 2.75 x 23 mm stent to the LAD in 2009, Had another cardiac catheterization done in 2016 with stents 2 to the RCA using Xience Alpine 2.5 x 38 mm and Xience Alpine 3.8 x 38 mm, done in [facility], Had abnormal stress test and cardiac catheterization done on August 02, 2019 showing ulcerated plaque with severe stenosis at the proximal LAD with successful deployment of Nya 2.75 x 18 mm stent overlapping with her old 2.75 stent expanded to 2.85 with excellent results, distal to the stent there is an area of 60 percent stenosis but the artery is fairly smaller artery, will manage it conservatively, had patent stents in the midright coronary artery with no obstructive disease, mild disease in the circumflex artery with normal LV size and function. Angiogram Hospitalizations in April 2021 with chest pain, reported that she had a stress test in [place] and reported as fixed defect involving the mid to apical anterior wall and anterior septum with mid inferolateral and apical lateral consistent with old infarction in the LAD distribution. Congestive heart failure, chronic compensated left ventricular systolic dysfunction, repeat echocardiogram showed improvement, ejection fraction 50 to 55%. Normal BNP. Continue to monitor Chronic atrial fibrillation, maintained on Xarelto and Toprol, controlled, occasionally rapid heart rate, tolerating current medication well. Continue to monitor Hypertension, controlled, continue to monitor Hyperlipidemia, maintained on Lipitor 80 mg and Zetia 10 mg daily, continue to monitor lipids Dizziness, occurring infrequently, currently feeling better Mild bilateral carotid stenosis, ultrasound was done in May 2021 Diabetes mellitus, managed by primary care physician Ok for discharge from cardiology standpoint, f/u in 4 weeks. Patient was seen and evaluated with [facility], examination performed, management plan was discussed, agree with the current scribed note, I made few changes to the note using Italic font Patient is laying down in bed, feeling better, denies any chest pain, reporting improvement in the nausea Discussed with the patient the management plan Okay for discharge and follow-up as an outpatient MAGEN CHANG Nov 25, 2021 08:26 DENIS ALEX MD Nov 25, 2021 12:50
[2021-11-25] MEDS ORDERED: ASPIRIN E.C. 81 MG (ECOTRIN) TAB PO SCH (09:00)
[2021-11-25] MEDS ORDERED: CLOPIDOGREL 75 MG (PLAVIX) TABLET PO SCH (09:00)
[2021-11-25] MEDS ORDERED: METO-310 PO (09:58)
[2021-11-25] MEDS ORDERED: ONDA4TAB11 PO (09:59)
--- NOTE | 2021-11-25 09:59 | Discharge Summary ---
Discharge Summary Hospital Course Was the Problem List Reviewed?: Yes Problems/Dx: (1) Chest pain (2) Nausea Status: Acute Hospital Course Date of Admission: Nov 24, 2021 at 13:50 Admission Diagnosis : Family Physician/Provider: [facility] Date of Discharge: 11/25/21 Discharge Diagnosis: Chest pain without evidence of ACS, acute on chronic nausea, diabetes Hospital Course: Hospital Course: Kira Hill is a 65 y/o F with a PMH of T2DM, HTN, CAD, asthma, PUD, HLD, and Afib who was referred here by her PCP at [facility] for chest pain and nausea. She has had constant nausea for the last 2-3 months and at times it will get worse and she will have diaphoresis and heaving. Her chest pain improved with aspirin given by EMS. On arrival her troponin was not elevated and EKG showed Afib. Cardiology was consulted and it was decided that no intervention was needed. Patient was most worried about her nausea as it is uncomfortable and has decreased her quality of life. She thought that the nausea may be due to a change in her diabetes medication (rybelsus and trulicity) however, the symptoms have continued after stopping this 2 weeks ago. She noticed improvement in her nausea the next day with prn zofran. It is possible she has a component of gastroparesis due to diabetes that is causing the nausea. She will be sent home on zofran and reglan and can follow-up with her PCP next week MARIAA VALENZUELA U Labs and Pending Lab Test: Laboratory Tests 11/24/21 11:37: White Blood Count 8.6, Red Blood Count 4.75, Hemoglobin 12.8, Hematocrit 40, Mean Corpuscular Volume 84, Mean Corpuscular Hemoglobin 27, Mean Corpuscular Hemoglobin Concent 32, Red Cell Distribution Width 18.4H, Platelet Count 435H, Mean Platelet Volume 12.3H, Immature Granulocyte % (Auto) 0, Neutrophils (%) (Auto) 46, Lymphocytes (%) (Auto) 39, Monocytes (%) (Auto) 8, Eosinophils (%) (Auto) 6, Basophils (%) (Auto) 1, Neutrophils # (Auto) 3.9, Lymphocytes # (Auto) 3.3, Monocytes # (Auto) 0.7, Eosinophils # (Auto) 0.5H, Basophils # (Auto) 0.1, Immature Granulocyte # (Auto) 0.0, Prothrombin Time 21.3H, INR Comment 1.8H, Activated Partial Thromboplast Time 33, Sodium Level 136, Potassium Level 4.3, Chloride Level 105, Carbon Dioxide Level 20L, Anion Gap 11, Blood Urea Nitrogen 22H, Creatinine 1.67H, Estimat Glomerular Filtration Rate 34, BUN/Creatinine Ratio 13, Glucose Level 220H, Calcium Level 9.6, Corrected Calcium 9.8, Magnesium Level 2.0, Total Bilirubin 0.5, Aspartate Amino Transf (AST/SGOT) 11, Alanine Aminotransferase (ALT/SGPT) 9, Alkaline Phosphatase 137H, Creatine Kinase MB 0.8, Myoglobin 56.1, Troponin I < 0.028, B-Type Natriuretic Peptide 65.4, Total Protein 7.2, Albumin 3.8 11/24/21 13:50: Troponin I < 0.028 11/24/21 16:19: Glucometer 110 11/24/21 19:11: Troponin I < 0.028 11/24/21 20:51: Glucometer 94 11/25/21 05:48: White Blood Count 8.8, Red Blood Count 4.44, Hemoglobin 11.9, Hematocrit 38, Mean Corpuscular Volume 85, Mean Corpuscular Hemoglobin 27, Mean Corpuscular Hemoglobin Concent 32, Red Cell Distribution Width 18.6H, Platelet Count 374, Mean Platelet Volume 11.9, Immature Granulocyte % (Auto) 0, Neutrophils (%) (Auto) 46, Lymphocytes (%) (Auto) 37, Monocytes (%) (Auto) 9, Eosinophils (%) (Auto) 6, Basophils (%) (Auto) 1, Neutrophils # (Auto) 4.1, Lymphocytes # (Auto) 3.3, Monocytes # (Auto) 0.8, Eosinophils # (Auto) 0.6H, Basophils # (Auto) 0.1, Immature Granulocyte # (Auto) 0.0, Sodium Level 138, Potassium Level 3.8, C hloride Level 108H, Carbon Dioxide Level 21, Anion Gap 9, Blood Urea Nitrogen 15, Creatinine 1.24, Estimat Glomerular Filtration Rate 48, BUN/Creatinine Ratio 12, Glucose Level 111H, Calcium Level 9.5, Corrected Calcium 10.0, Magnesium Level 1.8, Total Bilirubin 0.8, Aspartate Amino Transf (AST/SGOT) 12, Alanine Aminotransferase (ALT/SGPT) 9, Alkaline Phosphatase 123, Troponin I < 0.028, Total Protein 6.4, Albumin 3.4, Triglycerides Level 158H, Cholesterol Level 134, LDL Cholesterol Direct 65, VLDL Cholesterol 32, HDL Cholesterol 42 Home Meds Active Reglan (Metoclopramide HCl) 10 Mg Tablet 10 Mg PO ACHS Xopenex (Levalbuterol HCl) 1.25 Mg/3 Ml Vial.neb 1.25 Mg INH Q8H PRN Furosemide 20 Mg Tablet 20 Mg PO DAILY Zetia (Ezetimibe) 10 Mg Tablet 10 Mg PO DAILY Pantoprazole Sodium 40 Mg Tablet.dr 40 Mg PO DAILY Aspirin EC (Aspirin) 81 Mg Tablet.dr 81 Mg PO DAILY Clopidogrel (Clopidogrel Bisulfate) 75 Mg Tablet 75 Mg PO DAILY Metformin HCl 1,000 Mg Tablet 1,000 Mg PO BID Hold Metformin for 48 Hours Reported Metoprolol Succinate 25 Mg Tab.er.24h 25 Mg PO DAILY Xarelto (Rivaroxaban) 20 Mg Tablet 20 Mg PO HS Ondansetron HCl 4 Mg Tablet 4 Mg PO TID PRN Duloxetine HCl 60 Mg Capsule.dr 60 Mg PO DAILY Lisinopril 2.5 Mg Tablet 2.5 Mg PO 1500 LAST FILLED #90 01-19-19 Glipizide 10 Mg Tablet 20 Mg PO BID TAKES 2 (10MG) TABLETS Atorvastatin Calcium 80 Mg Tablet 80 Mg PO 1500 LAST FILLED #90 03-02-19 Mirtazapine 15 Mg Tablet 15 Mg PO HS Divalproex Sodium 500 Mg Tablet.dr 500 Mg PO HS Assessment/Pt Instructions PCP in 1 week Discharge Planning: <30 minutes discharge planning Discharge Instructions Discharge Diet: ADA Diet Discharge Physical Examination Vital Signs Vital Signs Date Time Temp Pulse Resp B/P (MAP) Pulse Ox O2 Delivery O2 Flow Rate FiO2 11/25/21 08:12 36.3 75 16 112/75 (87) 98 Room Air General Appearance: No Apparent Distress, WD/WN, Chronically ill Allergies: Coded Allergies: amoxicillin (Verified Adverse Reaction, Mild, 11/24/21) YEAST INFECTION Uncoded Allergies: ANESTHESIA (Adverse Reaction, Unknown, Nausea, 05/07/19) Discharge Summary Date of Admission Nov 24, 2021 at 13:50 Date of Discharge Discharge Date: Nov 25, 2021 Admission Diagnosis Chest Pain Clinical Quality Measures AMI/AHF: ASA po Prior to arrival: Yes ([phone]) MAYI WRIGHT DO Nov 25, 2021 09:59
[2021-11-25] MEDS ORDERED: EMPA25TA PO (10:07)
[2021-11-25] MEDS ORDERED: PANT40TA52 PO (10:07)
[2021-11-25] MEDS ORDERED: GLIM4TAB5 PO (10:07)
[2021-11-25] MEDS ORDERED: BACL10TA PO (10:07)
[2021-11-25] MEDS ORDERED: DILT240C91 PO (10:07)
[2021-11-25] MEDS ORDERED: CARV3.122 PO (10:07)
[2021-11-25] MEDS ORDERED: EZET10TA49 PO (10:07)
[2021-11-25] MEDS ORDERED: TOLT4CAP26 PO (10:07)
[2021-11-25] MEDS ORDERED: FLUT1DIS26 INH (10:07)
[2021-11-25] MEDS ORDERED: ASPI-1238 PO (10:35)
[2021-11-25] MEDS ORDERED: ONDANSETRON 4 MG (ZOFRAN) ORAL DISSOLVE TAB PO PRN (11:00)
--- NOTE | 2021-11-25 11:09 | Progress Note ---
MARIAA VALENZUELA 11/25/21 1109: Progress Note Hospital Course: Kira Hill is a 65 y/o F with a PMH of T2DM, HTN, CAD, asthma, PUD, HLD, and Afib who was referred here by her PCP at [facility] for chest pain and nausea. She has had constant nausea for the last 2-3 months and at times it will get worse and she will have diaphoresis and heaving. Her chest pain improved with aspirin given by EMS. On arrival her troponin was not elevated and EKG showed Afib. Card iology was consulted and it was decided that no intervention was needed. Patient was most worried about her nausea as it is uncomfortable and has decreased her quality of life. She thought that the nausea may be due to a change in her diabetes medication (rybelsus and trulicity) however, the symptoms have continued after stopping this 2 weeks ago. She noticed improvement in her nausea the next day with prn zofran. It is possible she has a component of gastroparesis due to diabetes that is causing the nausea. She will be sent home on zofran and reglan and can follow-up with her PCP next week ADRIANNA THIBODEAUX DO 11/26/21 0517: Supervisory-Addendum Brief Verification & Attestation Participated in pt care: history, MDM, physical Personally performed: exam, history, MDM, supervision of care Care discussed with: Medical Student Procedures: n/a Results interpretation: Verified all documentation Verification and Attestation of Medical Student E/M Service A medical student performed and documented this service in my presence. I reviewed and verified all information documented by the medical student and made modifications to such information, when appropriate. I personally performed the physical exam and medical decision making. Adrianna Thibodeaux, Nov 26, 2021,05:17 MARIAA VALENZUELA Nov 25, 2021 11:09 ADRIANNA THIBODEAUX DO Nov 26, 2021 05:17
[2021-11-25] MEDS ORDERED: RT--FLUTICASONE/SALMETEROL 113-14 (AIRDUO RespiCLICK) IH PRN (11:30)
[2021-11-25 12:10] VITALS: BP 112/75
[2021-11-25] MEDS ORDERED: GLIMEPIRIDE 4 MG (AMARYL) TAB PO SCH (21:00)
[2021-11-25] MEDS ORDERED: TOLTERODINE LA 4 MG (DETROL) CAP PO SCH (21:00)
[2021-11-25] MEDS ORDERED: BACLOFEN 10 MG (LIORESAL) TAB PO SCH (21:00)
[2021-11-26] MEDS ORDERED: lisINopril 5 MG (PRINIVIL) TABLET PO SCH (09:00)
[2021-11-26] MEDS ORDERED: PANTOPRAZOLE 40 MG (PROTONIX) TAB PO SCH (09:00)
[2021-11-26] MEDS ORDERED: NON-FORMULARY MEDICATION 1 EA EA (Empagliflozin (Jardiance) 25 MG) PO SCH (09:00)
[2021-11-26] MEDS ORDERED: eZETimibe 10 MG (ZETIA) TABLET PO SCH (09:00)
[2021-11-26] MEDS ORDERED: RIVAROXABAN 20 MG TABLET (XARELTO) PO SCH (09:00)
== END 2021-11-25 12:10 | disposition home or self-care (01) ==
LOC: EDUNIT# 11:37 → ER 11:38 → 4TH 13:50
PROVIDERS: ADMIT Internal Medicine; ATTEND Internal Medicine
DX: R07.9 Chest pain, unspecified (principal); R11.0 Nausea; E11.9 Type 2 diabetes mellitus without complications; E78.5 Hyperlipidemia, unspecified; J45.909 Unspecified asthma, uncomplicated; I48.91 Unspecified atrial fibrillation; E78.00 Pure hypercholesterolemia, unspecified; I25.10 Atherosclerotic heart disease of native coronary artery without angina pectoris; I12.9 Hypertensive chronic kidney disease with stage 1 through stage 4 chronic kidney disease, or unspecified chronic kidney disease; N18.9 Chronic kidney disease, unspecified; I25.2 Old myocardial infarction; G89.29 Other chronic pain; M54.9 Dorsalgia, unspecified; F41.9 Anxiety disorder, unspecified; F32.A Depression, unspecified; Z79.82 Long term (current) use of aspirin; Z79.899 Other long term (current) drug therapy; Z79.84 Long term (current) use of oral hypoglycemic drugs; Z79.02 Long term (current) use of antithrombotics/antiplatelets
CPT/HCPCS: 71045; 80053 ×2; 80061; 82553; 82947 ×2; 83735 ×2; 83874; 83880; 84484 ×2; 85025 ×2; 85610; 85730; 93005 ×2; 93041; 93306; 99284; G0378; 36415

== ENCOUNTER 2021-12-31 05:32 | Outpatient (CLI) | payer MEDICARE, OTHER ==
[~2021-12-31] VITALS: Ht 177.8 cm; Wt 98.9 kg
[~2021-12-31 05:32] MED LIST changes: +BACL10TA PO; +CARV3.122 PO; +DILT240C91 PO; +EMPA25TA PO; +EZET10TA49 PO; +FLUT1DIS26 INH; +GLIM4TAB5 PO; +METO-310 PO; +ONDA4TAB11 PO; +TOLT4CAP26 PO
== END 2021-12-31 13:11 ==
LOC: PREOP 05:32
PROVIDERS: ATTEND Surgery
DX: Z01.818 Encounter for other preprocedural examination (principal)

== ENCOUNTER 2022-01-26 10:51 | Day surgery (SDC) | payer MEDICARE, OTHER ==
[~2022-01-26] VITALS: Ht 177 cm; Wt 98.9 kg
[2022-01-26] MEDS ORDERED: LACTATED RINGERS 1,000 ML IV ONE (10:58)
[2022-01-26] MEDS ORDERED: LACTATED RINGERS 1,000 ML IV STA (11:01)
--- NOTE | 2022-01-26 11:08 | Progress Note-Pre Operative ---
Pre-Operative Progress Note H&P Reviewed The H&P was reviewed, patient examined and no changes noted. Time Seen by Provider: 11:04 Date H&P Reviewed: Jan 26, 2022 Time H&P Reviewed: 11:04 Pre-Operative Diagnosis: Chronic Gastritis, Screening ROMÁN AGUIRRE DO Jan 26, 2022 11:08
[2022-01-26 11:10] VITALS: BP 121/68
[2022-01-26] MEDS ORDERED: HURRICAINE EXT TUBE (BENZOCAINE) XX PRN (11:15)
[2022-01-26] MEDS ORDERED: PROPOFOL INJECTION 50 ML IV ONE (11:30)
[2022-01-26] MEDS ORDERED: MIDAZOLAM 2 MG/2 ML (VERSED) VIAL ONE (11:30)
[2022-01-26 12:01] VITALS: BP 107/57
--- NOTE | 2022-01-26 12:03 | Progress Note-Post Operative ---
Post-Operative Progess Note Surgeon (s)/Staff Electrical Engineer (s) Surgeon ROMÁN AGUIRRE DO Staff Electrical Engineer: none Pre-Operative Diagnosis Chronic Gastritis, Screening Post-Operative Diagnosis Gastritis hiatal hernia esophagitis fecal impaction poor prep Procedure & Operative Findings Date of Procedure 01/26/22 Procedure Performed/Findings EGD with bx Flex Sigmoidoscopy PROCEDURE NOTE: After informed consent was obtained, the patient was brought to the endoscopy suite, placed in bed in left lateral decubitus position. She was administered IV sedation by the ALTERATIONS MANAGER who then monitored vitals the entire time, heart rate, blood pressure and pulse ox and the scope was inserted down the mouth through the esophagus into the stomach. On the way down, noted some mild esophagitis, took a picture, pushed into the stomach and noted blood in little strings. Pushed past the antrum into the duodenum; which looked good. Pulled back and did a biopsy of the antrum and looked around for a source of the blood. I could not find any ulcer or source. Then retroflexed the scope, saw very small hiatal hernia, took a picture of this and then pulled the scope into the GE junction, took another picture of the esophagitis and then did a biopsy of the GE junction. Pushed the scope back into the stomach, suctioned all the air out of the stomach. At this point pulled the scope up the esophagus and out the mouth. Switched camera, switched gloves, went down below and started the colonoscopy. Pushed into the rectum and im- mediately encountered large ball of stool and liquid fecal material. Pushed up into the descending colon but continued to encounter large formed stool and the wall were completely covered. At this point elected to stop, she will need a two day prep and will reattempt colonoscopy. l couldn't even retroflex in the rectal vault because of the fecal material. The patient tolerated the procedure and she recovered in the endoscopy suite. Anesthesia Type IV sedation by ALTERATIONS MANAGER Estimated Blood Loss Estimated blood loss (mL): scant Specimens/Packing Specimens Removed antral bx GE jxn bx ROMÁN AGUIRRE DO Jan 26, 2022 12:03
[2022-01-26 12:05] VITALS: BP 104/55
--- NOTE | 2022-01-26 12:06 | Endoscopy Discharge Instruct ---
Endo Procedure/Findings Findings 1.: Gastritis 2.: Hiatal Hernia 3.: Other Findings (fecal impaction) Discharge Instructions - Activity: You might feel a little sleepy until tomorrow. This is due to the medicine you received to relax you. Until tomorrow, you should: NOT drive a car, operate machinery or power tools. NOT drink any alcoholic beverages. NOT make any important decisions or sign importortant papers. Do not return to work until tomorrow, unless otherwise instructed. Resume previous activities tomorrow. Diet: Start by taking liquids. If you tolerate liquids, advance to solid food. 1.: Other Recommendation (Colonoscopy in 1-2 months) 2.: EGD in 1 year Notify Physician - If you experience excessive bleeding, unusual abdominal pain, fever, or chest pain, contact your doctor immediately. ROMÁN AGUIRRE DO Jan 26, 2022 12:06
[2022-01-26 12:42] VITALS: BP 114/62
--- NOTE | 2022-01-26 13:30 | Anesthesia-General Post-Op ---
MAC Patient Condition Mental Status/LOC: Same as Preop Cardiovascular: Satisfactory Nausea/Vomiting: Absent Respiratory: Satisfactory Pain: Controlled Complications: Absent Post Op Complications Complications None Follow Up Care/Instructions Patient Instructions None needed. Anesthesiology Discharge Order Discharge Order Patient is doing well, no complaints, stable vital signs, no apparent adverse anesthesia problems. No complications reported per nursing. RICHARD NOLASCO CRNA Jan 26, 2022 13:30
== END 2022-01-26 12:44 | disposition home or self-care (01) ==
LOC: ENDO 10:51
PROVIDERS: ATTEND Surgery
DX: Z12.11 Encounter for screening for malignant neoplasm of colon (principal); K29.50 Unspecified chronic gastritis without bleeding; K44.9 Diaphragmatic hernia without obstruction or gangrene; K20.90 Esophagitis, unspecified without bleeding; K56.41 Fecal impaction; E11.9 Type 2 diabetes mellitus without complications; Z87.891 Personal history of nicotine dependence; Z79.899 Other long term (current) drug therapy; Z79.84 Long term (current) use of oral hypoglycemic drugs
CPT/HCPCS: 82947; 88305

== ENCOUNTER → 2022-07-31 | Outpatient (CLI) | payer MEDICARE, OTHER | LOC: CARD 14:00 | PROVIDERS: ATTEND Internal Medicine Cardiovascular Disease | DX: I25.10 Atherosclerotic heart disease of native coronary artery without angina pectoris (principal); I11.9 Hypertensive heart disease without heart failure | CPT/HCPCS: 93306 ==

== ENCOUNTER → 2022-08-03 | Outpatient (CLI) | payer MEDICARE, OTHER ==
--- NOTE | 2022-08-03 08:54 | Diagnostic Imaging Report ---
PROCEDURE: US Thyroid. TECHNIQUE: Multiple real-time grayscale images were obtained of the thyroid in various projections. INDICATION: Nontoxic single thyroid nodule followup. COMPARISON: None. FINDINGS: Both thyroid lobes demonstrate smooth and homogenous background echotexture. Color flow Doppler demonstrates normal and symmetric vascularity bilaterally. The right lobe measures 4.9 cm in length, 2.4 cm AP, and 1.9 cm transverse. The left lobe measures 4.2 cm in length, 1.0 cm AP, and 1.5 cm transverse. The isthmus measures 0.5 cm. A solid nodule is seen in the superior pole of the right lobe of the thyroid demonstrating isoechoic features with internal vascularity. This measures 2.5 x 1.7 x 1.7 cm. A solid hypoechoic nodule is seen in the medial aspect of the left lobe of thyroid measuring 0.6 cm. IMPRESSION: 1. Dominant solid nodule in the superior pole of the right lobe of the thyroid. Based on size criteria and imaging characteristics thyroid nodule FNA is recommended. Additionally, followup should be considered in 12 months with thyroid ultrasound. Dictated by: Dictated on workstation # [id number]
== END ==
LOC: RAD 07:46
PROVIDERS: ATTEND Physician Assistant
DX: E04.1 Nontoxic single thyroid nodule (principal)
CPT/HCPCS: 76536

== ENCOUNTER → 2022-08-20 | Outpatient (CLI) | payer MEDICARE, OTHER ==
[~2022-08-20] MED LIST changes: +LIDOCAINE 1% INJ 30 ML (XYLOCAINE) VIAL INJ ONE
--- NOTE | 2022-08-20 16:18 | Diagnostic Imaging Report ---
INDICATION: Right lobe thyroid nodule. Patient presents for ultrasound-guided fine needle aspiration and Rotex biopsy. PROCEDURE: Patient was brought to the procedure room and placed on table in the supine position. Ultrasound imaging of the neck was performed to evaluate appropriate entry site. The neck was then prepped and draped in the usual sterile fashion. Small amount of 1% lidocaine was utilized for local anesthesia. Four passes were made into the dominant solid nodule in right lobe of thyroid utilizing 25-gauge needles and fine-needle aspiration technique. A single pass was made with a Rotex needle and a Rotex biopsy was performed. Hemostasis was obtained. Patient tolerated the procedure well and left the Department in stable condition. IMPRESSION: Successful ultrasound-guided fine needle aspiration and Rotex biopsy of dominant solid nodule in right lobe of thyroid. Pathology results are currently pending. Dictated by: Dictated on workstation # [id number]
== END ==
LOC: RAD 13:52
PROVIDERS: ATTEND Pediatrics
DX: E04.1 Nontoxic single thyroid nodule (principal)
CPT/HCPCS: 10005; 88173

== ENCOUNTER → 2022-09-09 | Outpatient (CLI) | payer MEDICARE, OTHER ==
[~2022-09-09] MED LIST changes: +CATHETER FLUSH 10 ML SYR IVP PRN; -LIDOCAINE 1% INJ 30 ML (XYLOCAINE) VIAL INJ ONE; +REGADENOSON 0.4 MG/5 ML SYR (LEXISCAN) IV ONE
[2022-09-09 10:02] VITALS: BP 148/67
--- NOTE | 2022-09-09 17:19 | Cardiology Stress Test Report ---
Stress Test Report Date of Procedure/Referring: Date of Procedure: Sep 09, 2022 [facility] Admitting Physician Admitting Physician: Attending Physician: Denis Peres MD Indications: atrial fibrillation Baseline Heart Rate: 72 Baseline Blood Pressure: Blood Pressure Systolic: 148 Blood Pressure Diastolic: 67 Baseline Vitals Vital Signs Date Time Temp Pulse Resp B/P (MAP) Pulse Ox O2 Delivery O2 Flow Rate FiO2 09/09/22 10:02 76 17 148/67 (94) Room Air Baseline EKG: Baseline EKG: a fib Summary After explaining the procedure to the patient, she signed a consent and then brought to the stress nuclear laboratory. Patient received 0.4 mg Lexiscan for stress test, ECG, heart rate and blood pres sure were monitored continuously. Resting and stress dose of radio tracer were injected, imaging was acquired and reviewed in short axis, horizontal long axis and vertical long axis views. TID: 1.06 SSS: 8 SDS: 5 EF: 69 1. Patient tolerated Lexiscan well 2. Baseline atrial fibrillation persisted during test 3. Reversible ischemia involving the mid to apical anterior wall and anterolateral wall 4. Normal left ventricular size, ejection fraction 69%, gated images are unreliable due to underlying atrial fibrillation Copy Copies To 1: [facility]/ DENIS PERES MD Sep 09, 2022 17:18
== END ==
LOC: CARD 07:49
PROVIDERS: ATTEND Internal Medicine Cardiovascular Disease
DX: I48.91 Unspecified atrial fibrillation (principal); I25.10 Atherosclerotic heart disease of native coronary artery without angina pectoris; I10 Essential (primary) hypertension
CPT/HCPCS: 78452; 93017

== ENCOUNTER 2022-10-07 07:58 | Day surgery (SDC) | payer MEDICARE, OTHER ==
[~2022-10-07] VITALS: Ht 179.1 cm; Wt 98.9 kg
[2022-10-07] VITALS (11 sets, daily range): BP systolic 118–143; BP diastolic 63–79
[~2022-10-07 07:58] MED LIST changes: -CATHETER FLUSH 10 ML SYR IVP PRN; -REGADENOSON 0.4 MG/5 ML SYR (LEXISCAN) IV ONE
[2022-10-07] MEDS ORDERED: NS IV 1000 ML 1,000 ML IV SCH ×2 (08:00→12:15)
[2022-10-07] MEDS ORDERED: HEParin (CATH LAB) 2,000 ML IV ONE (08:01)
[2022-10-07] MEDS ORDERED: NS IV 1000 ML 1,000 ML ONE (08:01)
[2022-10-07] MEDS ORDERED: LIDOCAINE 1% INJ 30 ML (XYLOCAINE) VIAL ONE (08:01)
--- NOTE | 2022-10-07 08:27 | Diagnostic Imaging Report ---
INDICATION: Abnormal stress test, coronary artery disease. Frontal chest obtained at 08:22 a.m. COMPARISON: 11/24/2021 Heart and mediastinal silhouette are normal in appearance. The lungs are clear. There is no pneumothorax or pleural fluid. IMPRESSION: No acute process in the chest. Dictated by: Dictated on workstation # [id number]
[2022-10-07 08:46] LABS: HEMATOCRIT 37 % (35-52); HEMOGLOBIN 11.6 g/dL (11.5-16.0); MEAN CORPUSCULAR HEMOGLOBIN 25 pg (25-34); MEAN CORPUSCULAR HGB CONC 31 g/dL (32-36); MEAN CORPUSCULAR VOLUME 78 fL (80-99); MEAN PLATELET VOLUME 10.9 fL (9.0-12.2); PLATELET COUNT 441 10^3/uL (130-400); WHITE BLOOD COUNT 12.8 10^3/uL (4.3-11.0)
[2022-10-07 08:48] LABS: BILIRUBIN,URINE NEGATIVE (NEGATIVE); CLARITY,URINE CLEAR; COLOR,URINE YELLOW; GLUCOSE, URINE (UA) 3+ (NEGATIVE); KETONES,URINE NEGATIVE (NEGATIVE); LEUKOCYTE ESTERASE ,URINE NEGATIVE (NEGATIVE); NITRITE,URINE NEGATIVE (NEGATIVE); PROTEIN,URINE NEGATIVE (NEGATIVE)
[2022-10-07 08:55] LABS: BACTERIA,URINE FEW /HPF
[2022-10-07 09:00] LABS: INR 0.9 (0.8-1.4); PROTHROMBIN TIME PATIENT 13.1 SEC (12.2-14.7)
[2022-10-07 09:06] LABS: ALBUMIN 3.6 GM/DL (3.2-4.5); BILIRUBIN,TOTAL 0.4 MG/DL (0.1-1.0); CALCIUM 9.2 MG/DL (8.5-10.1); CREATININE SERUM 1.32 MG/DL (0.60-1.30); TOTAL PROTEIN 6.7 GM/DL (6.4-8.2)
[2022-10-07] MEDS ORDERED: TIRZ2.5P SQ (09:16)
[2022-10-07] MEDS ORDERED: GLIM4TAB5 PO (09:16)
[2022-10-07] MEDS ORDERED: RIVA20TA PO (09:16)
[2022-10-07] MEDS ORDERED: FLUT1DIS26 IH (09:16)
[2022-10-07] MEDS ORDERED: DILT120C85 PO (09:16)
[2022-10-07] MEDS ORDERED: PREG150C46 PO (09:16)
[2022-10-07] MEDS ORDERED: TRZ50T PO (09:16)
[2022-10-07] MEDS ORDERED: MEMA5TAB43 PO (09:16)
[2022-10-07] MEDS ORDERED: DIPH-757 PO (09:43)
[2022-10-07] MEDS ORDERED: NF-VITD400 PO (09:43)
[2022-10-07] MEDS ORDERED: PUMP300C PO (09:43)
[2022-10-07] MEDS ORDERED: OMEG100032 PO (09:43)
[2022-10-07] MEDS ORDERED: MELA1TAB20 PO (09:43)
--- NOTE | 2022-10-07 11:07 | Cardiac Procedure Note-CS/ASA ---
Pre-Procedure Note Pre-Op Procedure Note Date of Available H&P: Sep 15, 2022 Date H&P Reviewed: Oct 07, 2022 Time H&P Reviewed: 11:07 History & Physical: H&P Reviewed, Patient Examed, No changes noted Pre-Operative Diagnosis: CAD Conscious Sedation Pre-Proced Time 11:07 ASA Score 3 For ASA 3 and 4: Consider anesthesia and medical clearance. Also, for patients with a history of failed moderate sedation consider anesthesia. Airway Lungs Heart ASA score ASA 1: a normal healthy patient ASA 2: a patient with a mild systemic disease (mid diabetes, controlled hypertension, obesity ASA 3: a patient with a severe systemic disease that limits activity (angina, COPD, prior Myocardial infarction) ASA 4: a patient with an incapacitating disease that is a constant threat to life (CHF, renal failure) ASA 5: a moribund patient not expected to survive 24 hrs. (ruptured aneurysm) ASA 6: a declared brain- patient whose organs are being harvested. For emergent operations, add the letter E after the classification Mallampati Classification Grade 3 Sedation Plan Analgesia, Amnesia, Plan communicated to team members, Discussed options with patient/fam, Discussed risks with patient/fam The patient is an appropriate candidate to undergo the planned procedure, sedation, and anesthesia. The patient immediately re-assessed prior to indication. DENIS ALEX MD Oct 07, 2022 11:07
[2022-10-07] MEDS ORDERED: VERAPAMIL 5 MG/2 ML (CALAN) VIAL IV ONE (11:12)
[2022-10-07] MEDS ORDERED: fentaNYL INJ 100 MCG/2 ML AMP ONE (11:12)
[2022-10-07] MEDS ORDERED: ONDANSETRON 4 MG/2 ML (SDV) Z0FRAN ONE (11:12)
[2022-10-07] MEDS ORDERED: MIDAZOLAM 5 MG/5 ML (VERSED) VIAL ONE (11:12)
[2022-10-07] MEDS ORDERED: HEParin 1000 UNIT/ML (10ML VIAL) FOR BOLUS ONE (11:13)
[2022-10-07] MEDS ORDERED: NITRO DRIP 25000 MCG/D5W 250 ML IV ONE (11:13)
[2022-10-07] MEDS ORDERED: CLOP-31 PO (12:03)
[2022-10-07] MEDS ORDERED: ASPI-1238 PO (12:03)
--- NOTE | 2022-10-07 12:03 | Discharge Inst-Post CATH ---
Discharge Inst-CATH/EP Problems Reviewed?: Yes Post Cardiac Cath/EP D/C Inst Follow Up/Plan Appointment with Dr. Peres's office in 2 to 4 weeks <b>CARDIAC CATH/EP PROCEDURE DISCHARGE INSTRUCTIONS</b> ACTIVITY * Go Home directly and rest. * Limit activity of the leg (or wrist if it was used) for 7 days including aer obics, swimming, jogging, bicycling, etc. * Restrict stair-climbing for 7 days if possible, if not, climb up with your non-cath leg, then bring together on the same step. * Avoid lifting, pushing, pulling or excessive movement of the affected extremi ty for 7 days. * Customary sexual activity may be resumed after 2 days-use caution not to use a position that strains or causes pain to the affected extremity. * No driving for 24 hours. * NO SMOKING. * Avoid straining for bowel movements for 7 days. * Gentle walking on level ground is allowed. * Returning to work will depend on the type of procedure and the results. Your doctor will discuss this with you. CALL YOUR DOCTOR FOR ANY OF THE FOLLOWING: *If bleeding from the puncture site occurs- Apply gentle pressure to site with clean cloth and call your doctor or EMS. * If a knot or lump forms under the skin, increases in size, or causes pain. * If bruising appears to be worsening or moving further down your leg instead of disappearing. * Temperature above 101 F. CARE OF YOUR GROIN INCISION; * Bruising or purple discoloration of the skin near the puncture site is common. * You may shower only, no bathtub bathing for 5 days. Be careful to avoid slipping as your leg may feel stiff. * If a closure device was used on your femoral artery, please see the attached guide regarding care of the device and your leg. * Leave dressing on FOR 24 hours. CARE OF YOUR WRIST INCISION; * Bruising or purple discoloration of the skin near the puncture site is common. * You may shower. * DO NOT submerge wrist. * Leave dressing on FOR 24 hours. DENIS PERES MD Oct 07, 2022 12:03
--- NOTE | 2022-10-07 12:09 | Cardiac Cath Report ---
Cardiac Cath Report Physician (s)/Prison Classification Counselor (s) Physician DENIS ALXE MD Pre-Procedure Diagnosis Pre-Procedure Diagnosis: CAD Post-Procedure Note Procedure Start Date: Oct 07, 2022 Name of Procedure: Left heart catheterization DATA TYPIST to the LAD Findings/Procedure Note PROCEDURE NOTE: 66-year-old lady with history of coronary artery disease, hypertension hyperlipidemia, multiple intervention in the past, had an abnormal stress test, scheduled for cardiac catheterization. After explaining the procedure to the patient, all pros and cons were explained, all questions were answered. The patient signed the consent and then she was placed in the cardiac catheterization laboratory. Groin was prepped in SL f ashion local anesthesia was used. Sheath placed in the right radial artery, Polebridge catheter was advanced through the catheter to the left ventricular cavity, pressure was measured, pullback LV to aorta was done, engaged the right and left coronary system, angiogram was done. Patient has severe in-stent restenosis in the mid LAD, Ganesh left guide was used, BMW wire was advanced through the lesion and then noncompliant balloon 3 x 15 mm was used, multiple inflation with excellent results no residual stenosis. At the end of the procedure the sheath was removed. Vascular band was used FINDINGS: Hemodynamics LV 95/7, end-diastolic pressure of 7 Aorta 87/40 mean of 63 ANATOMY: Left Main is free of obstructive disease Left Anterior Descending has 80% stenosis in the mid LAD within the stent successful balloon angioplasty using noncompliant 3 x 15 mm balloon with 0% residual stenosis Left Circumflex is moderate in size with no obstructive disease Right Coronary Artery is dominant artery with no obstructive disease LV Gram was not done, pressure was measured PERCUTANEOUS INTERVENTION: Pre stenosis 80% Post Stenosis 0% Pre ABHISHEK flow 2 Post ABHISHEK flow 3 Dominance right coronary artery CONCLUSION: 1. Severe in-stent restenosis in the mid LAD successful balloon angioplasty using noncompliant 3 x 15 mm balloon with excellent results. No residual stenosis 2. Otherwise no significant obstructive disease 3. Normal left ventricular end-diastolic pressure DISCUSSION AND RECOMMENDATION: Patient was loaded with aspirin and Plavix we will continue with aspirin and Plavix for 1 month then stop the Plavix and continue aspirin with Xarelto Anesthesia Type: Conscious Sedation (15 ml) Estimated blood loss (mL): 15 ml Contrast Amount: 29 ml Total Radiation Dose: 405 mGy Post-Procedure Diagnosis Post-operative diagnosis: Chest pain Coronary artery disease Hypertension Hyperlipidemia DENIS ALEX MD Oct 07, 2022 12:09
[2022-10-07] MEDS ORDERED: ASPIRIN 325 MG (5 GR) TABLET ONE (12:10)
[2022-10-07] MEDS ORDERED: CLOPIDOGREL 300 MG (PLAVIX) TABLET PO ONE (12:10)
== END 2022-10-07 16:15 ==
LOC: CATH 07:58 → SDC 12:28 → CATH 16:15
PROVIDERS: ATTEND Internal Medicine Cardiovascular Disease
DX: I25.10 Atherosclerotic heart disease of native coronary artery without angina pectoris (principal); I10 Essential (primary) hypertension; Z79.899 Other long term (current) drug therapy; E66.9 Obesity, unspecified; Z87.891 Personal history of nicotine dependence; I48.20 Chronic atrial fibrillation, unspecified; I65.23 Occlusion and stenosis of bilateral carotid arteries; E11.9 Type 2 diabetes mellitus without complications; G89.29 Other chronic pain; E78.2 Mixed hyperlipidemia
CPT/HCPCS: 71045; 80053; 80061; 81000; 85027; 85610; 85730; 87081; 87088; 92920; 93005; 93458; C1725; C1769; C1887 ×2; 36415

== ENCOUNTER 2022-12-14 11:05 | Outpatient (RCR) | payer MEDICARE, OTHER ==
[~2022-12-14 11:05] MED LIST changes: +CLOP-31 PO; +DILT120C85 PO; +DIPH-757 PO; +FLUT1DIS26 IH; +MELA1TAB72 PO; +MEMA5TAB43 PO; +NF-VITD400 PO; +OMEG100032 PO; +PREG150C46 PO; +PUMP300C PO; +TIRZ2.5P SQ; +TRZ50T PO
[2022-12-16] MEDS ORDERED: METH4TAB11 PO (15:12)
[2022-12-16] MEDS ORDERED: CYCL10TA25 PO (15:12)
== END 2023-01-01 | disposition home or self-care (01) ==
LOC: CR 11:05
PROVIDERS: ATTEND Internal Medicine Cardiovascular Disease
DX: Z29.8 Encounter for other specified prophylactic measures (principal); Z95.5 Presence of coronary angioplasty implant and graft
CPT/HCPCS: 93798

== ENCOUNTER 2022-12-16 13:18 | Emergency (ER) | payer MEDICARE, OTHER ==
[~2022-12-16] VITALS: Ht 178 cm; Wt 102.0 kg
--- NOTE | 2022-12-16 14:44 | ED Back Pain ---
General Chief Complaint: Back Problems Stated Complaint: RT SIDE PAIN Nursing Triage Note: Patient to [place] w c/o lower back pain and radiates down the right leg and knee. Pain started yesterday. Patients been lifting and packing boxes for the past couple of days. Patient states 2 tylenol this am and 2 tylenol this nupur. hx of chronic back pain. Source of Information: Patient Exam Limitations: No Limitations History of Present Illness Date Seen by Provider: Dec 16, 2022 Time Seen by Provider: 14:16 Initial Comments 66-year-old female presents to the ED with complaints of right sciatic nerve pain. States she has a history of this pain, and sees a chiropractor for it. States she saw the chiropractor today, but when she got home the pain was worse. States she took Tylenol approximately 15 minutes prior to arrival. Denies any numbness or tingling in the leg. Reports pain radiates from lower back, down posterior leg to foot. Also reports arthritis in right knee. States she has been packing to move, likely overexerting herself. Past medical history includes several heart attacks, diabetes. States that her blood sugars have been on the higher side lately, because she has just been eating cookies and chocolate. Denies any increased urination or increased thirst. Denies any abdominal pain, nausea, or vomiting. Denies saddle paresthesia, loss of control of bowel/bladder, or inability to walk. Allergies and Home Medications Allergies Coded Allergies: amoxicillin (Verified Adverse Reaction, Mild, 11/24/21) YEAST INFECTION Uncoded Allergies: ANESTHESIA (Adverse Reaction, Unknown, Nausea, 05/07/19) Patient Home Medication List Home Medication List Reviewed: Yes Aspirin (Aspirin EC) 81 Mg Tablet.dr, 81 MG PO DAILY Prescribed by: DENIS ALEX on 10/07/22 1203 Atorvastatin Calcium (Atorvastatin Calcium) 80 Mg Tablet, 80 MG PO DAILY, (Reported) Entered as Reported by: ANA MARIA ROOT on 05/07/19 0615 Carvedilol (Carvedilol) 3.125 Mg Tablet, 3.125 MG PO BID, (Reported) Entered as Reported by: CARTER ELIAS on 11/25/21 1007 Clopidogrel Bisulfate (Plavix) 75 Mg Tablet, 75 MG PO DAILY Prescribed by: DENIS ALEX on 10/07/22 1203 Cyclobenzaprine HCl (Cyclobenzaprine HCl) 10 Mg Tablet, 10 MG PO TID Prescribed by: Milady Reina on 12/16/22 151 Diltiazem HCl (Diltiazem ER) 120 Mg Capsule.er, 120 MG PO DAILY, (Reported) Entered as Reported by: ANU PAIZ on 10/07/22 09 Diphenhydramine HCl (Allergy) 25 Mg Tablet, 25-50 MG PO BID PRN for ALLERGIES, (Reported) Entered as Reported by: ANU PAIZ on 10/07/22 09 Empagliflozin (Jardiance) 25 Mg Tablet, 25 MG PO DAILY, (Reported) Entered as Reported by: CARTER ELIAS on 11/25/21 1007 Ezetimibe (Ezetimibe) 10 Mg Tablet, 10 MG PO DAILY, (Reported) Entered as Reported by: CARTER ELIAS on 11/25/21 1007 Fluticasone/Salmeterol (Advair 250-50 Diskus) 250 Mcg-50 Mcg/Dose Blst.w.dev, 1 EACH IH BID, (Reported) Entered as Reported by: ANU PAIZ on 10/07/22 09 Glimepiride (Glimepiride) 4 Mg Tablet, 4 MG PO BID, (Reported) Entered as Reported by: ANU PAIZ on 10/07/22 09 Lisinopril (Lisinopril) 2.5 Mg Tablet, 2.5 MG PO DAILY, (Reported) Entered as Reported by: ANA MARIA ROOT on 05/07/19 0615 Melatonin/Pyridoxine HCl (B6) (Melatonin 10 mg Tablet) 10 Mg-10 Mg Tab.mphase, 1 EACH PO HS PRN for SLEEP, (Reported) Entered as Reported by: ANU PAIZ on 10/07/22 09 Memantine HCl (Memantine HCl) 5 Mg Tablet, 5 MG PO DAILY, (Reported) Entered as Reported by: ANU PAIZ on 10/07/22 09 Methylprednisolone (Methylprednisolone Dose Pack) 4 Mg Tablet, 4 MG PO UD Prescribed by: Milady Reina on 12/16/22 151 [place]-3/Dha/Epa/Fish Oil (Fish Oil 1,000 mg Softgel) 1,000 Mg (120 Mg-180 Mg) Capsule, 1,000 MG PO HS, (Reported) Entered as Reported by: ANU PAIZ on 10/07/22942 Ondansetron HCl (Ondansetron HCl) 4 Mg Tablet, 4 MG PO Q8H PRN for NAUSEA/VOMITING-1ST LINE, (Reported) Entered as Reported by: HAVEN DAWN on 08/02/19 1112 Pantoprazole Sodium (Pantoprazole Sodium) 40 Mg Tablet.dr, 40 MG PO DAILY, (Reported) Entered as Reported by: CARTER ELIAS on 11/25/211006 Pregabalin (Pregabalin) 150 Mg Capsule, 150 MG PO BID, (Reported) Entered as Reported by: ANU PAIZ on 10/07/22915 Pumpkin Seed Extract/Soy Germ (Azo Bladder Control Capsule) 300 Mg Capsule, 300 MG PO HS, (Reported) Entered as Reported by: ANU PAIZ on 10/07/22942 Rivaroxaban (Xarelto) 20 Mg Tablet, 20 MG PO HS, (Reported) Entered as Reported by: ANU PAIZ on 10/07/22915 Tirzepatide (Mounjaro) 2.5 Mg/0.5 Ml Pen.injctr, 2.5 MG SQ WEDNESDAY, (Reported) Entered as Reported by: ANU PAIZ on 10/07/22915 Tolterodine Tartrate (Tolterodine Tartrate ER) 4 Mg Cap.er.24h, 4 MG PO HS, (Reported) Entered as Reported by: CARTER ELIAS on 11/25/211006 Trazodone HCl (Trazodone HCl) 50 Mg Tablet, 50 MG PO HS, (Reported) Entered as Reported by: ANU PAIZ on 10/07/22915 Vitamin D (Vitamin D3) 10 Mcg (400 Unit) Tablet, 400 MCG PO DAILY, (Reported) Entered as Reported by: ANU PAIZ on 10/07/22942 Review of Systems Constitutional: see HPI Past Dzplyhb-Pfreyr-Wvysil Hx Patient Social History Tobacco Use?: No Substance use?: Yes Substance type: Marijuana Alcohol Use?: No Immunizations Up To Date Tetanus Booster (TDap): Unknown First/Initial COVID19 Vaccinat: unknown Second COVID19 Vaccination Roby: January 2021 Third COVID19 Vaccination Date: NO COVID19 Vaccine Speech Teacher: unknown Seasonal Allergies Seasonal Allergies: No Past Medical History Surgery/Hospitalization HX: April 2021- [facility] Surgeries: Yes Section, Gallbladder, Joint Replacement, Orthopedic, Tonsillectomy Respiratory: Yes COPD Currently Using CPAP: No Cardiac: Yes (HEART ATTACK x7, STENTS x5) Heart Attack, High Cholesterol, Hypertension Neurological: No MANAGER MEDICAL History: Menopausal Genitourinary: Yes (incontinence) Gastrointestinal: Yes Gastroesophageal Reflux Musculoskeletal: Yes Arthritis, Chronic Back Pain Endocrine: Yes Diabetes, Non-Insulin dep HEENT: No Cancer: No Psychosocial: Yes Anxiety, Depression Integumentary: No Blood Disorders: Yes Family Medical History Heart Disease, Lung Disease Physical Exam Vital Signs Vital Signs - First Documented 12/16/22 13:33 Temp 36.7 Pulse 75 Resp 18 B/P (MAP) 102/60 (74) Pulse Ox 97 O2 Delivery Room Air Capillary Refill : Less Than 3 Seconds Height, Weight, BMI Height: 5'11.00" Weight: 235lbs. oz. 106.219393yp; 32.00 BMI Method:Stated General Appearance: No Apparent Distress, WD/WN Neck: Normal Inspection, Supple Cardiovascular: Regular Rate, Rhythm, No Edema, No Gallop, No JVD, No Murmur Respiratory: Lungs Clear, Normal Breath Sounds, No Accessory Muscle Use, No Respiratory Distress Back: Normal Inspection, No Vertebral Tenderness Extremity: Normal Inspection, Normal Range of Motion; No Swelling Neurologic/Psychiatric: Alert, Normal Mood/Affect Skin: Normal Color, Warm/Dry Progress/Results/Core Measures Results/Orders My Orders Orders - MILADY REINA APRN Ketorolac Injection (Toradol Injection) (12/16/22 14:45) Orphenadrine Inj (Ed Only) (Norflex Inje (12/16/22 14:45) Methylprednisolone Sod Succ (Solu-Medrol (12/16/22 14:45) Medications Given in ED Vital Signs/I&O 12/16/22 12/16/22 13:33 15:24 Temp 36.7 Pulse 75 67 Resp 18 18 B/P (MAP) 102/60 (74) 118/59 Pulse Ox 97 98 O2 Delivery Room Air Room Air Blood Pressure Mean: 74 Progress Progress Note : Time: 14:44 Progress Note Patient seen and evaluated, resting comfortably in bed, no acute distress. Based on exam and symptoms, concern for sciatic nerve pain. Toradol, Solu- Medrol, and Norflex ordered here. Will discharge patient with a Medrol Dosepak and muscle relaxer. Departure Impression Primary Impression: Sciatica Qualified Codes: M54.31 - Sciatica, right side Disposition: HOME, SELF-CARE Condition: Stable Departure-Patient Inst. Decision time for Depature: 15:11 Referrals: CARTER ESTEVEZ DO (PCP/Family) Primary Care Physician Patient Instructions: Sciatica Add. Discharge Instructions: Take Medrol Dosepak as prescribed. Take Flexeril up to 3 times a day as needed for pain. It may make you sleepy. Monitor your blood sugars. Return if blood sugars are significantly elevated, or you have increased thirst, increased urination, abdominal pain, nausea, vomiting. Return if you have numbness in the inside of your thighs, unable to walk, bowel or bladder incontinence, or any other new, concerning, or worsening symptoms. All discharge instructions reviewed with patient and/or family. Voiced understanding. Scripts Methylprednisolone (Methylprednisolone Dose Pack) 4 Mg Tablet 4 MG PO UD for 6 Days, #21 TAB 0 Refills FOLLOW DOSE PACK INSTRUCTIONS Prov: MILADY REINA APRN 12/16/22 Cyclobenzaprine HCl (Cyclobenzaprine HCl) 10 Mg Tablet 10 MG PO TID for 7 Days, #21 TAB 0 Refills Prov: MILADY REINA APRN 12/16/22 MILADY REINA APRN Dec 16, 2022 14:44
[2022-12-16] MEDS ORDERED: methylPREDNISolone 40 MG/ML (Solu-MEDROL) VIAL IM ONE (14:45)
[2022-12-16] MEDS ORDERED: KETOROLAC 15 MG/ML VIAL IM ONE (14:45)
[2022-12-16] MEDS ORDERED: ORPHENADRINE 60 MG/2 ML (NORFLEX) AMP (ED ONLY) IM ONE (14:45)
[2022-12-16] MEDS ORDERED: METH4TAB11 PO (15:12)
[2022-12-16] MEDS ORDERED: CYCL10TA25 PO (15:12)
[2022-12-16 15:24] VITALS: BP 118/59
== END 2022-12-16 15:25 | disposition home or self-care (01) ==
LOC: EDUNIT# 13:18 → ER 13:20
DX: M54.41 Lumbago with sciatica, right side (principal); E11.9 Type 2 diabetes mellitus without complications; I10 Essential (primary) hypertension
CPT/HCPCS: 99284

== ENCOUNTER 2023-01-04 08:07 | Outpatient (RCR) | payer MEDICARE, OTHER ==
[~2023-01-04 08:07] MED LIST changes: +METH4TAB11 PO
== END 2023-01-31 ==
LOC: CR 08:07
PROVIDERS: ATTEND Internal Medicine Cardiovascular Disease
DX: Z29.8 Encounter for other specified prophylactic measures (principal)

== ENCOUNTER 2023-04-15 14:51 | Day surgery (SDC) | payer MEDICARE, OTHER ==
[~2023-04-15] VITALS: Ht 179.1 cm; Wt 113.4 kg
[2023-04-15] VITALS (12 sets, daily range): BP systolic 97–132; BP diastolic 58–86
[~2023-04-15 14:51] MED LIST changes: +DILT120C71 PO; -DILT120C85 PO
[2023-04-15] MEDS ORDERED: ceFAZolin INJECTION 2,000 MG in NS (IVPB) 50 ML IV ONE (15:15)
[2023-04-15] MEDS ORDERED: metroNIDAZOLE 500MG/100ML IVPB 100 ML IV ONE (15:15)
[2023-04-15] MEDS ORDERED: LACTATED RINGERS 1,000 ML IV PRN (15:15)
[2023-04-15] MEDS ORDERED: LIDOCAINE/EPI 1%-1:100,000 (XYLOCAINE) 20ML ONE (15:18)
[2023-04-15] MEDS ORDERED: LIDOCAINE/EPI 1%-1:100,000 (XYLOCAINE) 20ML INJ ONE (15:40)
[2023-04-15] MEDS ORDERED: FAMOTIDINE 20MG/2ML IV (PEPCID) ONE (16:08)
[2023-04-15] MEDS ORDERED: ONDANSETRON 4 MG/2 ML (SDV) Z0FRAN ONE ×2 (16:08→16:38)
[2023-04-15] MEDS ORDERED: SCOPOLAMINE 1.5 MG (TRANSDERM-SCOP) PATCH ONE (16:08)
[2023-04-15] MEDS ORDERED: SCOPOLAMINE 1.5 MG (TRANSDERM-SCOP) PATCH TOP ONE (16:15)
[2023-04-15] MEDS ORDERED: FAMOTIDINE 20MG/2ML IV (PEPCID) IV ONE (16:15)
[2023-04-15] MEDS ORDERED: ONDANSETRON 4 MG/2 ML (SDV) Z0FRAN IV ONE (16:15)
[2023-04-15] MEDS ORDERED: ONDA-105 PO (16:16)
[2023-04-15] MEDS ORDERED: CROM10DR6 OP (16:16)
[2023-04-15] MEDS ORDERED: SITA100T12 PO (16:16)
[2023-04-15] MEDS ORDERED: SULF-221 PO (16:21)
[2023-04-15] MEDS ORDERED: MIDAZOLAM 2 MG/2 ML (VERSED) VIAL ONE (16:26)
[2023-04-15] MEDS ORDERED: proPOfol 200 MG/20 ML (DIPRIVAN) VIAL IV ONE (16:38)
[2023-04-15] MEDS ORDERED: LIDOCAINE PF 2% 5 ML (XYLOCAINE) VIAL ONE (16:38)
[2023-04-15] MEDS ORDERED: PROPOFOL INJECTION 50 ML IV ONE (16:38)
--- NOTE | 2023-04-15 17:04 | Progress Note-Post Operative ---
Post-Operative Progess Note Surgeon (s)/Underwriting Service Representative (s) Surgeon ROMÁN AGUIRRE DO Underwriting Service Representative: none Pre-Operative Diagnosis Gluteal abscess Post-Operative Diagnosis Left gluteal and labial abscess Procedure & Operative Findings Date of Procedure 04/15/23 Procedure Performed/Findings I&D of Left gluteal and labial abscess with debridement and packing Anesthesia Type LMA Estimated Blood Loss Estimated blood loss (mL): appx 20ml Specimens/Packing Specimens Removed necrotic tissue and cultures ROMÁN AGUIRRE DO Apr 15, 2023 17:04
--- NOTE | 2023-04-15 17:17 | Anesthesia-General Post-Op ---
General Patient Condition Mental Status/LOC: Same as Preop Cardiovascular: Satisfactory Nausea/Vomiting: Absent Respiratory: Satisfactory Pain: Controlled Complications: Absent Post Op Complications Complications None Follow Up Care/Instructions Patient Instructions None needed. Anesthesia/Patient Condition Patient Condition Patient is doing well, no complaints, stable vital signs, no apparent adverse anesthesia problems. No complications reported per nursing. NILSA PARKS CRNA Apr 15, 2023 17:17
[2023-04-15] MEDS ORDERED: PROMETHAZINE INJ 25 MG/ML (PHENERGAN) AMP IVP ONE (17:30)
[2023-04-15] MEDS ORDERED: fentaNYL INJ 100 MCG/2 ML AMP IVP ONE (17:30)
[2023-04-15] MEDS ORDERED: morphine INJ 10 MG/ML 1ML (SYR OR VIAL) IVP ONE (17:30)
[2023-04-15] MEDS ORDERED: ASPI-1238 PO (19:05)
--- NOTE | 2023-04-15 20:25 | Discharge Inst-Surgical ---
Discharge Inst-Surgical Depart Medication/Instructions New, Converted or Re-Newed RX: Transmitted to Pharmacy Patient Instructions Follow up Appt: Make appointment for 1 week. [phone] Instructions: No lifting greater than 20 pounds. No strenuous activity. May shower in 24 hours, no tub bath or soaking. Use incentive spirometer at home as directed. No Smoking Skin/Wound Care: May remove bandages in am. You need to leave the packing in place and change Wednesday or Wednesday Symptoms to Report: Appetite Changes, Extremity Discoloration, Numbness/Tingling, Swelling Increased, Bleeding Excessive, Eyesight Changes, Pain Increased, Urine Color Change, Constipation(Persistent), Fever over 101 degree F, Pain/Pressure in chest, Urinating Difficulty, Cough Up/Vomit Blood, Heart Beat Irreg/Pounding, Pain/Pressure in jaw, Cramps in feet or legs, Lightheadedness, Pain/Pressure in shoulder, Diarrhea(Persistent), Memory Changes Suddenly, Questions/Concerns, Weight gain consecutive days, Dizziness/Fainting, Nausea/Vomiting, Shortness of Breath, Weight gain over 2 pounds If questions or concerns contact your physician Or seek help at emergency department. Activity Activity as Tolerated: Yes Activity Instructions: Avoid Stress to Incision Diet Discharge Diet: No Restrictions Diet After 24 Hours: Clear Liquid if Nauseous If Any Problems/Questions/Issu: Contact Your Physician, Go to Emergency Room Skin/Wound Care Infection Signs and Symptoms: Increased Redness, Foul Odor of Wound, Increased Drainage, Skin Itchy or Has a Rash, Increased Swelling, Temperature Above 101 F Wound Care Comment: keep packing in for 2-3 days Bathing Instructions: ROMÁN Dawson DO Apr 15, 2023 20:25
[2023-04-15] MEDS ORDERED: ACHYD1T PO (20:26)
--- NOTE | 2023-04-16 18:13 | OPERATIVE REPORT ---
DATE OF SERVICE: 04/15/2023 PREOPERATIVE DIAGNOSIS: Gluteal abscess with labial abscess. POSTOPERATIVE DIAGNOSIS: Gluteal abscess with labial abscess plus necrotic tissue. PROCEDURE: Incision and drainage of left gluteal and labial abscess with debridement of necrotic tissue and packing. SURGEON: Dl Nelson DO SOFTWARE SALES: None. ANESTHESIA: General. SPECIMENS: Fluid for culture and necrotic tissue, just necrotic subcutaneous fat. BLOOD LOSS: Less than 20 mL FLUIDS: Per anesthesia. POSTOPERATIVE CONDITION: Stable. INDICATIONS FOR PROCEDURE: The patient is a 67-year-old female who had been seen in the office, had what looked like an abscess in the left gluteal area going into the left labial area with some necrotic tissue on the skin. FINDINGS: The patient had some necrotic tissue under the skin, but did not really look like necrotizing fasciitis, had very minimal amount of purulent fluid, did find a tract going from the left gluteal cheek up to the left labia. PROCEDURE NOTE: After informed consent was obtained, the patient was brought to the operating room and placed on the table in lithotomy position. She was sterilely prepped and draped in normal fashion. I started by making an incision in the left gluteal cheek right through the area of this some necrotic skin. There was minimal or scant purulent fluid, did a fluid culture. Then tried to follow the tract, breaking up any loculations, but again did not really get a lot of purulent fluid. Attempted to see if it connected to the labia using some gentle pressure and palpating, I went actually a little more towards the skin and then found to be a tract that went up towards the left labia, got a little bit more purulent fluid, tried to culture this as well. This made another opening on the left labia, again not too much purulent material found, really no necrotic tissue. These connected the labia to the gluteal and then this was copiously flushed with normal saline, then placed an iodoform packing, pushed from the gluteal opening to the labial opening and then packed this up into the area and then packed another portion of this 1/2-inch iodoform packing into the gluteal opening. Area was then cleaned and dried, dressing placed. The patient tolerated the procedure and transferred to recovery room in stable condition. Sponge and needle count correct at the end of the case. Job ID: [id number] DocumentID: [id number] Dictated Date: 04/16/2023 12:07:40 Pattern Storage Clerk Date: 04/16/2023 18:11:00 Dictated By: DL NELSON DO
== END 2023-04-15 19:00 ==
LOC: SDC 14:51
PROVIDERS: ATTEND Surgery
DX: L02.31 Cutaneous abscess of buttock (principal); N76.4 Abscess of vulva; K21.9 Gastro-esophageal reflux disease without esophagitis; E11.9 Type 2 diabetes mellitus without complications; E66.01 Morbid (severe) obesity due to excess calories; Z68.35 Body mass index [BMI] 35.0-35.9, adult; Z79.84 Long term (current) use of oral hypoglycemic drugs; Z79.899 Other long term (current) drug therapy; Z87.891 Personal history of nicotine dependence; Z79.891 Long term (current) use of opiate analgesic
CPT/HCPCS: 82947; 87070; 87075; 87076; 87077; 87081; 87185; 87205